=== PATIENT | female | born 1930 | race Caucasian/White ===

== ENCOUNTER 2016-04-08 23:14 | Emergency (ER) | payer BC, MEDICARE ==
[2016-04-08 23:25] VITALS: RESP 16
--- NOTE | 2016-04-08 23:28 | ED ---
General Adult HPI - General Chief complaint: Altered Mental Status Stated complaint: Altered Mental Status Time Seen by Provider: 04/08/16 23:14 Source: patient, EMS, RN notes reviewed Mode of arrival: EMS Limitations: physical limitation - History of Present Illness Initial comments: This is a 85-year-old female who apparently was found outside her residence. Additionally she was there for to 2 and half hours. She had fallen on her knees she complains some left neck pain she was brought in by EMS for evaluation for possible hypothermia. She is found have a temperature of about 93 Fahrenheit. No evidence of any external trauma was noted except for some erythema to both knees. No other information is available the patient is alert to self and to place but not time - Related Data Home Medications Medication Instructions Recorded Confirmed Atenolol [Tenormin] 25 mg PO QAM 04/08/16 04/08/16 Calcium/Magnesium/Zinc 1 tab PO BID 04/08/16 04/08/16 [Zowpryg-Eskhbcbtn-Gvdt Tablet] Citalopram Hydrobromide [CeleXA] 10 mg PO HS 04/08/16 04/08/16 Pioglitazone [Actos] 15 mg PO DAILY 04/08/16 04/08/16 Ramipril [Altace] 10 mg PO QAM 04/08/16 04/08/16 Simvastatin [Zocor] 20 mg PO HS 04/08/16 04/08/16 metFORMIN HCL [Glucophage] 500 mg PO BID 04/08/16 04/08/16 Allergies Allergy/AdvReac Type Severity Reaction Status Date / Time Sulfa (Sulfonamide Allergy Unknown Verified 04/08/16 23:25 Antibiotics) Review of Systems ROS Statement: Those systems with pertinent positive or pertinent negative responses have been documented in the HPI. ROS Other: All systems not noted in ROS Statement are negative. Limitations: ROS unobtainable due to patients medical condition Past Medical History Past Medical History: Unable to Obtain History of Any Multi-Drug Resistant Organisms: Unobtainable Past Surgical History: Unable to Obtain Past Psychological History: Unable to Obtain Smoking Status: Unknown if ever smoked Past Alcohol Use History: Unable to Obtain Past Drug Use History: Unable to Obtain General Exam - General Exam Comments Initial Comments: This is a well-developed well-nourished awake alert but somewhat confused female she did have a cervical collar in place Limitations: physical limitation General appearance: alert, in no apparent distress Head exam: Present: atraumatic, normocephalic, normal inspection Eye exam: Present: normal appearance, PERRL, EOMI. Absent: scleral icterus, conjunctival injection, periorbital swelling ENT exam: Present: normal exam, mucous membranes moist Neck exam: Present: normal inspection, tenderness (Left neck tenderness palpation no spinous process tenderness no step-off or crepitation is no stridor JVD or bruits). Absent: meningismus, lymphadenopathy Respiratory exam: Present: normal lung sounds bilaterally. Absent: respiratory distress, wheezes, rales, rhonchi, stridor Cardiovascular Exam: Present: regular rate, normal rhythm, normal heart sounds. Absent: systolic murmur, diastolic murmur, rubs, gallop, clicks GI/Abdominal exam: Present: soft, normal bowel sounds. Absent: distended, tenderness, guarding, rebound, rigid Extremities exam: Present: full ROM, normal capillary refill, other (Mild erythema seen in both knees with no step-off no crepitation no lacerations.). Absent: tenderness, pedal edema, joint swelling, calf tenderness Back exam: Present: normal inspection Neurological exam: Present: alert, oriented X3, CN II-XII intact Psychiatric exam: Present: normal affect, normal mood Skin exam: Present: warm, dry, intact, normal color. Absent: rash Course Vital Signs 04/08/16 04/09/16 04/09/16 23:21 00:18 00:49 Temperature 97.3 F L 98.0 F 98.2 F Pulse Rate 95 92 92 Respiratory 16 16 16 Rate Blood Pressure 145/67 136/62 128/66 O2 Sat by Pulse 97 96 96 Oximetry EKG Findings - EKG Results: EKG: interpreted by [email or web address], sinus rhythm (Sinus rhythm of 95 prolonged QT interval CO interval was 196 QRS duration 72 QT/QTC of 390/[address]-T wave changes.) Medical Decision Making - Medical Decision Making Patient's awake alert oriented normal temperature she will be discharged - Lab Data Result diagrams: 04/08/16 23:27 04/08/16 23:27 Lab Results 04/08/16 04/08/16 04/08/16 Range/Units 23:27 23:27 23:27 WBC 15.2 H (3.8-10.6) k/uL RBC 4.12 (3.80-5.40) m/uL Hgb 12.5 (11.4-16.0) gm/dL Hct 39.6 (34.0-46.0) % MCV 96.2 (80.0-100.0) fL MCH 30.4 (25.0-35.0) pg MCHC 31.6 (31.0-37.0) g/dL RDW 12.9 (11.5-15.5) % Plt Count 213 (150-450) k/uL Neutrophils % 86 % Lymphocytes % 10 % Monocytes % 3 % Eosinophils % 0 % Basophils % 0 % Neutrophils # 13.1 H (1.3-7.7) k/uL Lymphocytes # 1.5 (1.0-4.8) k/uL Monocytes # 0.5 (0-1.0) k/uL Eosinophils # 0.1 (0-0.7) k/uL Basophils # 0.1 (0-0.2) k/uL Sodium 140 (137-145) mmol/L Potassium 4.7 (3.5-5.1) mmol/L Chloride 100 (98-107) mmol/L Carbon Dioxide 24 (22-30) mmol/L Anion Gap 16 mmol/L BUN 24 H (7-17) mg/dL Creatinine 0.70 (0.52-1.04) mg/dL Est GFR (MDRD) Af Amer >60 (>60 ml/min/1.73 sqM) Est GFR (MDRD) Non-Af >60 (>60 ml/min/1.73 sqM) Glucose 159 H (74-99) mg/dL POC Glucose (mg/dL) (75-99) mg/dL POC Glu Hourly Caregiver ID Calcium 9.6 (8.4-10.2) mg/dL Magnesium 2.2 (1.6-2.3) mg/dL Total Bilirubin 0.4 (0.2-1.3) mg/dL AST 23 (14-36) U/L ALT 26 (9-52) U/L Alkaline Phosphatase 109 (38-126) U/L Total Creatine Kinase 87 (30-135) U/L CK-MB (CK-2) 1.0 (0.0-2.4) ng/mL CK-MB (CK-2) Rel Index 1.1 Troponin I 0.020 (0.000-0.034) ng/mL Total Protein 7.4 (6.3-8.2) g/dL Albumin 4.3 (3.5-5.0) g/dL 04/08/16 Range/Units 23:34 WBC (3.8-10.6) k/uL RBC (3.80-5.40) m/uL Hgb (11.4-16.0) gm/dL Hct (34.0-46.0) % MCV (80.0-100.0) fL MCH (25.0-35.0) pg MCHC (31.0-37.0) g/dL RDW (11.5-15.5) % Plt Count (150-450) k/uL Neutrophils % % Lymphocytes % % Monocytes % % Eosinophils % % Basophils % % Neutrophils # (1.3-7.7) k/uL Lymphocytes # (1.0-4.8) k/uL Monocytes # (0-1.0) k/uL Eosinophils # (0-0.7) k/uL Basophils # (0-0.2) k/uL Sodium (137-145) mmol/L Potassium (3.5-5.1) mmol/L Chloride (98-107) mmol/L Carbon Dioxide (22-30) mmol/L Anion Gap mmol/L BUN (7-17) mg/dL Creatinine (0.52-1.04) mg/dL Est GFR (MDRD) Af Amer (>60 ml/min/1.73 sqM) Est GFR (MDRD) Non-Af (>60 ml/min/1.73 sqM) Glucose (74-99) mg/dL POC Glucose (mg/dL) 151 H (75-99) mg/dL POC Glu Hourly Caregiver ID Anne Cervantes Calcium (8.4-10.2) mg/dL Magnesium (1.6-2.3) mg/dL Total Bilirubin (0.2-1.3) mg/dL AST (14-36) U/L ALT (9-52) U/L Alkaline Phosphatase (38-126) U/L Total Creatine Kinase (30-135) U/L CK-MB (CK-2) (0.0-2.4) ng/mL CK-MB (CK-2) Rel Index Troponin I (0.000-0.034) ng/mL Total Protein (6.3-8.2) g/dL Albumin (3.5-5.0) g/dL - Radiology Data Radiology results: report reviewed (I did review the imaging and reports no acute findings), image reviewed Disposition Clinical Impression: Dehydration, Cervical strain, Knee contusion, Feared condition not demonstrated Disposition: HOME SELF-CARE Condition: Good Instructions: Dehydration (ED), Neck Pain (ED)
[2016-04-08 23:35] LABS: Glucose,Whole Blood 151 mg/dL (75-99)
[2016-04-08 23:39] LABS: Basophils # (A) 0.1 k/uL (0-0.2); Basophils % (A) 0 %; CH 31.4; CHCM 32.9; Eosinophils # (A) 0.1 k/uL (0-0.7); Eosinophils % (A) 0 %; HCT 39.6 % (34.0-46.0); HDW 2.33; HGB 12.5 gm/dL (11.4-16.0); Luc # (Auto) 0.06; Luc % (Auto) 0; Lymphocytes # (A) 1.5 k/uL (1.0-4.8); Lymphocytes % (A) 10 %; MCH 30.4 pg (25.0-35.0); MCHC 31.6 g/dL (31.0-37.0); MCV 96.2 fL (80.0-100.0); Mean Platelet Volume 7.9; Monocytes # (A) 0.5 k/uL (0-1.0); Monocytes % (A) 3 %; Neutrophils # (A) 13.1 k/uL (1.3-7.7); Neutrophils % (A) 86 %; RBC 4.12 m/uL (3.80-5.40); RDW 12.9 % (11.5-15.5); WBC 15.2 k/uL (3.8-10.6); WBC (Perox) 15.54
[2016-04-08 23:48] LABS: ALT 26 U/L (9-52); AST 23 U/L (14-36); Alkaline Phosphatase 109 U/L (38-126); Anion Gap 16 mmol/L; Blood Urea Nitrogen 24 mg/dL (7-17); Calcium 9.6 mg/dL (8.4-10.2); Carbon Dioxide 24 mmol/L (22-30); Chloride 100 mmol/L (98-107); Glucose 159 mg/dL (74-99); Magnesium 2.2 mg/dL (1.6-2.3); Non-African American GFR(MDRD) >60 (>60 ml/min/1.73 sqM); Potassium 4.7 mmol/L (3.5-5.1); Sodium 140 mmol/L (137-145); Total Bilirubin 0.4 mg/dL (0.2-1.3); Total Protein 7.4 g/dL (6.3-8.2)
[2016-04-09 00:13] LABS: Troponin I 0.02 ng/mL (0.000-0.034)
[2016-04-09 00:30] VITALS: PULSE 92
--- NOTE | 2016-04-09 00:32 | XR ---
EXAMINATION TYPE: XR chest 2V DATE OF EXAM: 04/09/2016 12:23 AM COMPARISON: None. HISTORY: Phone outside and cold positive LOC. TECHNIQUE: Frontal and lateral views of the chest are obtained. FINDINGS: Mild chronic interstitial lung changes are suggested bilaterally. There is no focal pneumonia, pleural effusion, or pneumothorax seen. The cardiac silhouette size is within normal limits. Atherosclerotic calcification is noted in the aortic arch. The osseous struct ures are intact. Mild increased density in the left lung base area is most likely an artifact. The la teral view does not show significant pleural effusion. IMPRESSION: 1. No acute cardiopulmonary process. 2. Chronic lung changes are suggested.
[2016-04-09 00:50] VITALS: BP 128/66; TEMP 98.2
--- NOTE | 2016-04-09 01:04 | CT ---
EXAMINATION TYPE: CT brain cspine wo con DATE OF EXAM: 04/09/2016 12:22 AM COMPARISON: NONE HISTORY: pt. found outside, LOC, AMS CT DLP: 1242.30 mGycm Automated exposure control for dose reduction was used. TECHNIQUE: CT scan of the head and cervical spine are performed without contrast. FINDINGS: There is no acute intracranial hemorrhage, mass effect, or midline shift identified. Prominent cortical sulci are noted with age-related atrophic changes of brain. Ventricles are also pr ominent in size with central cerebral atrophic changes. The left lateral ventricle is somewhat asymme trically increasingly dilated with atrophic changes. There is dense calcification in the right suprasellar area and is probably related to calcified ectat ic supraclinoid internal carotid artery. Dense activity atherosclerotic calcification is also noted i n the cavernous portions of carotid arteries. Chronic white matter ischemic changes are suggested kenny aterally. The globes are intact. Mucus retention cysts are noted in the left maxillary sinus with chronic sinus itis changes. There is volume loss of right maxillary sinus probably related to chronic inflammatory process or postsurgical changes with chronic sinusitis changes. Mild chronic ethmoid and sphenoid sin usitis changes are suggested. Cervical spine is visualized in its entirety from C1 through upper thoracic levels and demonstrates s atisfactory alignment without evidence of acute fracture or dislocation. Prevertebral soft tissue ap pears within normal limits. The C1-C2 articulation is unremarkable. Slight irregularity is noted in the inferior endplate of C4 vertebra posteriorly in the sagittal imag e 32 and is probably related to old fracture changes or trauma changes or degenerative changes. 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 Degenerative disc disease changes are also noted at the level of C5-C6 and C6-C7 with a disc osteophyte complexes. Mild disc os teophyte complexes are also suggested at the level of C2-C3 and C3-C4.. C7 vertebra showed hemangioma changes of benign nature on the right side in the body in the axial ketty ge 73. Biapical pleural thickening and scarring is suggested. Carotid arterial calcification is noted. IMPRESSION: 1. No acute process is noted in the brain. 2. Atrophic changes and periventricular white matter ischemic changes of chronic nature. 3. Chronic sinusitis. 4. No definite acute fracture in the cervical spine. 5. 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
== END 2016-04-09 01:22 | disposition home or self-care (01) ==
LOC: EC 23:14
DX: E86.0 Dehydration (principal); S16.1XXA Strain of muscle, fascia and tendon at neck level, initial encounter; R41.82 Altered mental status, unspecified; Z71.1 Person with feared health complaint in whom no diagnosis is made; Z79.899 Other long term (current) drug therapy; Z79.84 Long term (current) use of oral hypoglycemic drugs; Z88.2 Allergy status to sulfonamides; W19.XXXA Unspecified fall, initial encounter; Y92.008 Other place in unspecified non-institutional (private) residence as the place of occurrence of the external cause
CPT/HCPCS: 36415; 70450; 71020; 72125; 80053; 82550; 82553; 83735; 84484; 85025; 93005; 99285

== ENCOUNTER 2016-09-27 17:30 | Emergency (ER) | payer MEDICARE ==
[2016-09-27] MEDS ORDERED: SODIUM CHLORIDE 0.9% 1,000 ML IV STA (17:31)
--- NOTE | 2016-09-27 17:37 | ED ---
General Adult HPI - General Chief complaint: Syncope Stated complaint: Syncope Time Seen by Provider: 09/27/16 17:31 Source: patient, EMS, RN notes reviewed, old records reviewed Mode of arrival: EMS Limitations: no limitations - History of Present Illness Initial comments: This is an 85-year-old female ER status post syncopal event. Patient is poor historian secondary to underlying medical conditions. Patient denies any complaints. No headache chest pain shortness of breath or abdominal pain. Medical history consists of diabetes. No recent change in medications per report. Record obtained from EMS and patient's chart - Related Data Home Medications Medication Instructions Recorded Confirmed Atenolol [Tenormin] 25 mg PO QAM 04/08/16 09/27/16 Calcium/Magnesium/Zinc 1 tab PO BID 04/08/16 09/27/16 [Fstdtmh-Sbtomvrbd-Kntp Tablet] Citalopram Hydrobromide [CeleXA] 10 mg PO HS 04/08/16 09/27/16 Pioglitazone [Actos] 15 mg PO DAILY 04/08/16 09/27/16 Ramipril [Altace] 10 mg PO QAM 04/08/16 09/27/16 Simvastatin [Zocor] 20 mg PO HS 04/08/16 09/27/16 metFORMIN HCL [Glucophage] 500 mg PO AC-BRKFST 04/08/16 09/27/16 Donepezil [Aricept] 5 mg PO HS 09/27/16 09/27/16 guaiFENesin-DM 100-10MG/5ML 10 ml PO QID PRN 09/27/16 09/27/16 [Robitussin DM] metFORMIN HCL [Glucophage] 1,000 mg PO HS 09/27/16 09/27/16 Allergies Allergy/AdvReac Type Severity Reaction Status Date / Time Sulfa (Sulfonamide Allergy Rash/Hives Verified 09/27/16 17:49 Antibiotics) Review of Systems ROS Statement: Those systems with pertinent positive or pertinent negative responses have been documented in the HPI. ROS Other: All systems not noted in ROS Statement are negative. Past Medical History Past Medical History: Diabetes Mellitus History of Any Multi-Drug Resistant Organisms: None Reported Past Surgical History: Hysterectomy Past Psychological History: No Psychological Hx Reported Smoking Status: Never smoker Past Alcohol Use History: Occasional Past Drug Use History: Unable to Obtain General Exam Limitations: no limitations General appearance: alert, in no apparent distress Head exam: Present: atraumatic, normocephalic, normal inspection Eye exam: Present: normal appearance, PERRL, EOMI. Absent: scleral icterus, conjunctival injection, periorbital swelling ENT exam: Present: normal exam, mucous membranes moist Neck exam: Present: normal inspection. Absent: tenderness, meningismus, lymphadenopathy Respiratory exam: Present: normal lung sounds bilaterally. Absent: respiratory distress, wheezes, rales, rhonchi, stridor Cardiovascular Exam: Present: regular rate, normal rhythm, normal heart sounds. Absent: systolic murmur, diastolic murmur, rubs, gallop, clicks GI/Abdominal exam: Present: soft, normal bowel sounds. Absent: distended, tenderness, guarding, rebound, rigid Extremities exam: Present: normal inspection, full ROM, normal capillary refill. Absent: tenderness, pedal edema, joint swelling, calf tenderness Back exam: Present: normal inspection Neurological exam: Present: alert, oriented X3, CN II-XII intact Psychiatric exam: Present: normal affect, normal mood Skin exam: Present: warm, dry, intact, normal color. Absent: rash Course Vital Signs 09/27/16 17:31 Temperature 98.9 F Pulse Rate 79 Respiratory 16 Rate Blood Pressure 124/77 O2 Sat by Pulse 96 Oximetry - Reevaluation(s) Reevaluation #1: 09/27/16 18:29 Patient continued has 0 complaints EKG Findings - EKG Comments: EKG Findings:: EKG shows normal sinus rhythm rate of 70, CA 180, QRS 80, QTC 453 Medical Decision Making - Medical Decision Making A 50 RVR status post: Syncopal episode. Patient has no complaints. No chest pain no headache no shortness of breath no abdominal pain, lab work is normal, urine is negative. Patient feels well, awake and alert, patient be discharged home - Lab Data Result diagrams: 09/27/16 17:36 09/27/16 17:36 Lab Results 09/27/16 09/27/16 09/27/16 Range/Units 17:36 17:36 17:36 WBC 6.2 (3.8-10.6) k/uL RBC 4.15 (3.80-5.40) m/uL Hgb 13.1 (11.4-16.0) gm/dL Hct 40.2 (34.0-46.0) % MCV 96.8 (80.0-100.0) fL MCH 31.4 (25.0-35.0) pg MCHC 32.5 (31.0-37.0) g/dL RDW 13.8 (11.5-15.5) % Plt Count 220 (150-450) k/uL Neutrophils % 54 % Lymphocytes % 33 % Monocytes % 7 % Eosinophils % 4 % Basophils % 1 % Neutrophils # 3.4 (1.3-7.7) k/uL Lymphocytes # 2.0 (1.0-4.8) k/uL Monocytes # 0.4 (0-1.0) k/uL Eosinophils # 0.2 (0-0.7) k/uL Basophils # 0.0 (0-0.2) k/uL PT (9.0-12.0) sec INR (<1.2) APTT (22.0-30.0) sec Sodium 141 (137-145) mmol/L Potassium 4.1 (3.5-5.1) mmol/L Chloride 104 (98-107) mmol/L Carbon Dioxide 28 (22-30) mmol/L Anion Gap 9 mmol/L BUN 13 (7-17) mg/dL Creatinine 0.78 (0.52-1.04) mg/dL Est GFR (MDRD) Af Amer >60 (>60 ml/min/1.73 sqM) Est GFR (MDRD) Non-Af >60 (>60 ml/min/1.73 sqM) Glucose 212 H (74-99) mg/dL Calcium 9.0 (8.4-10.2) mg/dL Phosphorus 3.7 (2.5-4.5) mg/dL Magnesium 1.9 (1.6-2.3) mg/dL Total Bilirubin 0.4 (0.2-1.3) mg/dL AST 19 (14-36) U/L ALT 26 (9-52) U/L Alkaline Phosphatase 103 (38-126) U/L Total Creatine Kinase 40 (30-135) U/L Total Protein 6.8 (6.3-8.2) g/dL Albumin 3.9 (3.5-5.0) g/dL Urine Color Urine Appearance (Clear) Urine pH (5.0-8.0) Ur Specific [place] (1.001-1.035) Urine Protein (Negative) Urine Glucose (UA) (Negative) Urine Ketones (Negative) Urine Blood (Negative) Urine Nitrite (Negative) Urine Bilirubin (Negative) Urine Urobilinogen (<2.0) mg/dL Ur Leukocyte Esterase (Negative) 09/27/16 09/27/16 Range/Units 17:36 17:55 WBC (3.8-10.6) k/uL RBC (3.80-5.40) m/uL Hgb (11.4-16.0) gm/dL Hct (34.0-46.0) % MCV (80.0-100.0) fL MCH (25.0-35.0) pg MCHC (31.0-37.0) g/dL RDW (11.5-15.5) % Plt Count (150-450) k/uL Neutrophils % % Lymphocytes % % Monocytes % % Eosinophils % % Basophils % % Neutrophils # (1.3-7.7) k/uL Lymphocytes # (1.0-4.8) k/uL Monocytes # (0-1.0) k/uL Eosinophils # (0-0.7) k/uL Basophils # (0-0.2) k/uL PT 11.3 (9.0-12.0) sec INR 1.1 (<1.2) APTT 22.5 (22.0-30.0) sec Sodium (137-145) mmol/L Potassium (3.5-5.1) mmol/L Chloride (98-107) mmol/L Carbon Dioxide (22-30) mmol/L Anion Gap mmol/L BUN (7-17) mg/dL Creatinine (0.52-1.04) mg/dL Est GFR (MDRD) Af Amer (>60 ml/min/1.73 sqM) Est GFR (MDRD) Non-Af (>60 ml/min/1.73 sqM) Glucose (74-99) mg/dL Calcium (8.4-10.2) mg/dL Phosphorus (2.5-4.5) mg/dL Magnesium (1.6-2.3) mg/dL Total Bilirubin (0.2-1.3) mg/dL AST (14-36) U/L ALT (9-52) U/L Alkaline Phosphatase (38-126) U/L Total Creatine Kinase (30-135) U/L Total Protein (6.3-8.2) g/dL Albumin (3.5-5.0) g/dL Urine Color Yellow Urine Appearance Clear (Clear) Urine pH 5.0 (5.0-8.0) Ur Specific [place] 1.020 (1.001-1.035) Urine Protein Trace H (Negative) Urine Glucose (UA) 4+ H (Negative) Urine Ketones Trace H (Negative) Urine Blood Negative (Negative) Urine Nitrite Negative (Negative) Urine Bilirubin Negative (Negative) Urine Urobilinogen <2.0 (<2.0) mg/dL Ur Leukocyte Esterase Negative (Negative) Disposition Clinical Impression: Vasovagal syncope Disposition: HOME SELF-CARE Condition: Good Instructions: Syncope (ED) Referrals: None,Stated [Primary Care Provider] - 1-2 days
[2016-09-27 17:58] LABS: Basophils % (A) 1 %; CHCM 32.3; Eosinophils # (A) 0.2 k/uL (0-0.7); Eosinophils % (A) 4 %; HCT 40.2 % (34.0-46.0); HDW 2.35; HGB 13.1 gm/dL (11.4-16.0); Luc # (Auto) 0.14; Luc % (Auto) 2; Lymphocytes % (A) 33 %; MCH 31.4 pg (25.0-35.0); MCHC 32.5 g/dL (31.0-37.0); MCV 96.8 fL (80.0-100.0); Monocytes # (A) 0.4 k/uL (0-1.0); Monocytes % (A) 7 %; Neutrophils # (A) 3.4 k/uL (1.3-7.7); Neutrophils % (A) 54 %; RBC 4.15 m/uL (3.80-5.40); RDW 13.8 % (11.5-15.5); WBC 6.2 k/uL (3.8-10.6); WBC (Perox) 6.05
[2016-09-27 18:02] LABS: Appearance,Urine Clear (Clear); Bilirubin,Urine Negative (Negative); Glucose,Urine (UA) 4+ (Negative); Ketones,Urine Trace (Negative); Leukocyte Esterase,Urine Negative (Negative); Nitrite,Urine Negative (Negative); Protein,Urine Trace (Negative); UA Billing (MACRO vs. MICRO) CHEM; Urobilinogen,Urine <2.0 mg/dL (<2.0)
[2016-09-27 18:09] LABS: INR 1.1 (<1.2); Partial Thromboplastin Time 22.5 sec (22.0-30.0); Prothrombin Time 11.3 sec (9.0-12.0)
[2016-09-27 18:12] LABS: ALT 26 U/L (9-52); AST 19 U/L (14-36); Alkaline Phosphatase 103 U/L (38-126); Anion Gap 9 mmol/L; Blood Urea Nitrogen 13 mg/dL (7-17); Carbon Dioxide 28 mmol/L (22-30); Chloride 104 mmol/L (98-107); Glucose 212 mg/dL (74-99); Magnesium 1.9 mg/dL (1.6-2.3); Non-African American GFR(MDRD) >60 (>60 ml/min/1.73 sqM); Phosphorous 3.7 mg/dL (2.5-4.5); Potassium 4.1 mmol/L (3.5-5.1); Sodium 141 mmol/L (137-145); Total Bilirubin 0.4 mg/dL (0.2-1.3); Total Protein 6.8 g/dL (6.3-8.2)
[2016-09-27 18:23] LABS: Creatine Kinase 40 U/L (30-135)
[2016-09-27 18:36] LABS: Creatine Kinase MB 0.5 ng/mL (0.0-2.4); Troponin I <0.012 ng/mL (0.000-0.034)
[2016-09-27 18:45] VITALS: BP 133/58; PULSE 71; RESP 17; TEMP 97.1
== END 2016-09-27 18:45 | disposition home or self-care (01) ==
LOC: EC 17:30
DX: R55 Syncope and collapse (principal); E11.9 Type 2 diabetes mellitus without complications; Z88.2 Allergy status to sulfonamides; Z79.84 Long term (current) use of oral hypoglycemic drugs; Z79.899 Other long term (current) drug therapy
CPT/HCPCS: 36415; 80053; 81003; 82550; 82553; 83735; 84100; 84484; 85025; 85610; 85730; 87086; 93005; 96360; 99285

== ENCOUNTER 2019-03-24 11:36 | Emergency (ER) | payer MEDICARE ==
[2019-03-24 11:44] VITALS: RESP 18
--- NOTE | 2019-03-24 12:09 | ED ---
Fall HPI - General Chief Complaint: Fall Stated Complaint: Fell Time Seen by Provider: 03/24/19 11:42 Source: patient, EMS Mode of arrival: EMS - History of Present Illness Initial Comments: Patient is an 88-year-old female, with mild dementia, presenting to the emergency department via EMS after falling at her house today. Patient does live in assisted living facility. Patient's daughter states she was helping patient go from sitting to standing and then to walk over to the bed when she tripped over her right foot and fell forward. Daughter states she did not hit her head and did not lose consciousness. Pt's only complaint is right ankle pain. Patient denies headache, neck pain, chest pain, shortness of breath, abdominal pain, hip pain. She denies feeling lightheaded, dizzy. She has no other complaints at this time. Patient's son and daughter is here with her now and states she is at her baseline. Upon arrival to the ER, vital signs are stable. - Related Data Home Medications Medication Instructions Recorded Confirmed Atenolol [Tenormin] 25 mg PO QAM 04/08/16 09/27/16 Calcium/Magnesium/Zinc 1 tab PO BID 04/08/16 09/27/16 [Ymtiten-Tyyswveyj-Bijg Tablet] Citalopram Hydrobromide [CeleXA] 10 mg PO HS 04/08/16 09/27/16 Pioglitazone [Actos] 15 mg PO DAILY 04/08/16 09/27/16 Ramipril [Altace] 10 mg PO QAM 04/08/16 09/27/16 Simvastatin [Zocor] 20 mg PO HS 04/08/16 09/27/16 metFORMIN HCL [Glucophage] 500 mg PO AC-BRKFST 04/08/16 09/27/16 Donepezil [Aricept] 5 mg PO HS 09/27/16 09/27/16 guaiFENesin-DM 100-10MG/5ML 10 ml PO QID PRN 09/27/16 09/27/16 [Robitussin DM] metFORMIN HCL [Glucophage] 1,000 mg PO HS 09/27/16 09/27/16 Previous Rx's Medication Instructions Recorded Cephalexin [Keflex] 500 mg PO BID 7 Days #14 cap 03/24/19 Allergies Allergy/AdvReac Type Severity Reaction Status Date / Time Sulfa (Sulfonamide Allergy Rash/Hives Verified 03/24/19 11:45 Antibiotics) Review of Systems ROS Statement: Those systems with pertinent positive or pertinent negative responses have been documented in the HPI. ROS Other: All systems not noted in ROS Statement are negative. Past Medical History Past Medical History: Dementia, Diabetes Mellitus History of Any Multi-Drug Resistant Organisms: None Reported Past Surgical History: Hysterectomy Past Psychological History: No Psychological Hx Reported Smoking Status: Never smoker Past Alcohol Use History: Occasional Past Drug Use History: Unable to Obtain General Exam - General Exam Comments Initial Comments: GENERAL: Well-appearing, well-nourished and in no acute distress. HEAD: Atraumatic, normocephalic. EYES: Pupils equal round and reactive to light, extraocular movements intact, sclera anicteric, conjunctiva are normal. ENT: TMs normal, nares patent, oropharynx clear without exudates. Moist mucous membr anes. NECK: Normal range of motion, supple without lymphadenopathy or JVD. LUNGS: Breath sounds clear to auscultation bilaterally and equal. No wheezes rales or rhonchi. HEART: Regular rate and rhythm without murmurs, rubs or gallops. ABDOMEN: Soft, nontender, normoactive bowel sounds. No guarding, no rebound. No masses appreciated. : Deferred EXTREMITIES: Mild pain with palpation of the right lateral ankle and lateral foot. There is mild edema and bruising present, normal range of motion. Neurovascular intact. NEUROLOGICAL: Cranial nerves II through XII grossly intact. Normal speech. At baseline, A&O x 2. PSYCH: Normal mood, normal affect. SKIN: Warm, Dry, normal turgor, no rashes or lesions noted. Limitations: altered mental status Course Vital Signs 03/24/19 11:38 Temperature 97.8 F Pulse Rate 73 Respiratory 18 Rate Blood Pressure 120/58 O2 Sat by Pulse 98 Oximetry Medical Decision Making - Medical Decision Making Patient is an 88-year-old female, with dementia, presenting today after falling. She did not hit her head, no LOC. Patient is not on thinners. Patient's only complaint was right ankle pain. On x-ray, patient does have a slight fracture of the right lateral malleolus as well as a nondisplaced fracture of the right, base of fifth metatarsal. Chest x-ray is normal. Lab work is unremarkable, troponin is normal. Urine does reveal a large amount of WBC and clumps. Patient will be treated for UTIs well. Patient's right foot was placed in a short leg splint. He was given 1 g of Rocephin before DC. She will continue with Keflex for her UTI and will also follow up with orthopedics regarding her fractures. Patient's daughter is in agreement with this plan of care. Return parameters were discussed with them and they verbalized understanding. Case discussed with Dr. Crowder. - Lab Data Result diagrams: 03/24/19 12:11 03/24/19 12:11 Lab Results 03/24/19 03/24/19 03/24/19 Range/Units 12:11 12:11 12:11 WBC 7.2 (3.8-10.6) k/uL RBC 3.98 (3.80-5.40) m/uL Hgb 12.2 (11.4-16.0) gm/dL Hct 38.6 (34.0-46.0) % MCV 97.0 (80.0-100.0) fL MCH 30.6 (25.0-35.0) pg MCHC 31.6 (31.0-37.0) g/dL RDW 13.2 (11.5-15.5) % Plt Count 242 (150-450) k/uL Neutrophils % 62 % Lymphocytes % 24 % Monocytes % 6 % Eosinophils % 4 % Basophils % 2 % Neutrophils # 4.4 (1.3-7.7) k/uL Lymphocytes # 1.7 (1.0-4.8) k/uL Monocytes # 0.5 (0-1.0) k/uL Eosinophils # 0.3 (0-0.7) k/uL Basophils # 0.1 (0-0.2) k/uL PT 9.7 (9.0-12.0) sec INR 0.9 (<1.2) APTT 19.3 L (22.0-30.0) sec Sodium 141 (137-145) mmol/L Potassium 4.8 (3.5-5.1) mmol/L Chloride 102 (98-107) mmol/L Carbon Dioxide 33 H (22-30) mmol/L Anion Gap 6 mmol/L BUN 15 (7-17) mg/dL Creatinine 0.81 (0.52-1.04) mg/dL Est GFR (CKD-EPI)AfAm 77 (>60 ml/min/1.73 sqM) Est GFR (CKD-EPI)NonAf 66 (>60 ml/min/1.73 sqM) Glucose 127 H (74-99) mg/dL Calcium 9.8 (8.4-10.2) mg/dL Total Bilirubin 0.7 (0.2-1.3) mg/dL AST 38 H (14-36) U/L ALT 23 (4-34) U/L Alkaline Phosphatase 85 (38-126) U/L Troponin I (0.000-0.034) ng/mL Total Protein 7.0 (6.3-8.2) g/dL Albumin 3.9 (3.5-5.0) g/dL Urine Color Urine Appearance (Clear) Urine pH (5.0-8.0) Ur Specific [place] (1.001-1.035) Urine Protein (Negative) Urine Glucose (UA) (Negative) Urine Ketones (Negative) Urine Blood (Negative) Urine Nitrite (Negative) Urine Bilirubin (Negative) Urine Urobilinogen (<2.0) mg/dL Ur Leukocyte Esterase (Negative) Urine RBC (0-5) /hpf Urine WBC (0-5) /hpf Urine WBC Clumps (None) /hpf Ur Squamous Epith Cells (0-4) /hpf Urine Bacteria (None) /hpf Hyaline Casts (0-2) /lpf Urine Mucus (None) /hpf 03/24/19 03/24/19 Range/Units 12:11 13:30 WBC (3.8-10.6) k/uL RBC (3.80-5.40) m/uL Hgb (11.4-16.0) gm/dL Hct (34.0-46.0) % MCV (80.0-100.0) fL MCH (25.0-35.0) pg MCHC (31.0-37.0) g/dL RDW (11.5-15.5) % Plt Count (150-450) k/uL Neutrophils % % Lymphocytes % % Monocytes % % Eosinophils % % Basophils % % Neutrophils # (1.3-7.7) k/uL Lymphocytes # (1.0-4.8) k/uL Monocytes # (0-1.0) k/uL Eosinophils # (0-0.7) k/uL Basophils # (0-0.2) k/uL PT (9.0-12.0) sec INR (<1.2) APTT (22.0-30.0) sec Sodium (137-145) mmol/L Potassium (3.5-5.1) mmol/L Chloride (98-107) mmol/L Carbon Dioxide (22-30) mmol/L Anion Gap mmol/L BUN (7-17) mg/dL Creatinine (0.52-1.04) mg/dL Est GFR (CKD-EPI)AfAm (>60 ml/min/1.73 sqM) Est GFR (CKD-EPI)NonAf (>60 ml/min/1.73 sqM) Glucose (74-99) mg/dL Calcium (8.4-10.2) mg/dL Total Bilirubin (0.2-1.3) mg/dL AST (14-36) U/L ALT (4-34) U/L Alkaline Phosphatase (38-126) U/L Troponin I <0.012 (0.000-0.034) ng/mL Total Protein (6.3-8.2) g/dL Albumin (3.5-5.0) g/dL Urine Color Yellow Urine Appearance Cloudy H (Clear) Urine pH 7.5 (5.0-8.0) Ur Specific [place] 1.013 (1.001-1.035) Urine Protein Negative (Negative) Urine Glucose (UA) Negative (Negative) Urine Ketones Negative (Negative) Urine Blood Negative (Negative) Urine Nitrite Positive H (Negative) Urine Bilirubin Negative (Negative) Urine Urobilinogen <2.0 (<2.0) mg/dL Ur Leukocyte Esterase Large H (Negative) Urine RBC 7 H (0-5) /hpf Urine WBC 156 H (0-5) /hpf Urine WBC Clumps Occasional H (None) /hpf Ur Squamous Epith Cells <1 (0-4) /hpf Urine Bacteria Few H (None) /hpf Hyaline Casts 2 (0-2) /lpf Urine Mucus Rare H (None) /hpf Disposition Clinical Impression: Fall, Fracture of right ankle, lateral malleolus, Fracture of base of fifth metatarsal bone of right foot, UTI (urinary tract infection) Disposition: HOME SELF-CARE Condition: Stable Instructions (If sedation given, give patient instructions): Foot Fracture in Adults (ED), Urinary Tract Infection in Older Adults (ED) Additional Instructions: Please return to the Emergency Department if symptoms worsen or any other concerns. Take antibiotic as prescribed. Follow-up with orthopedic doctor as discussed. Prescriptions: Cephalexin [Keflex] 500 mg PO BID 7 Days #14 cap Is patient prescribed a controlled substance at d/c from ED?: No Referrals: Darrius Cabrera MD [Primary Care Provider] - 1-2 days Roland Sierra PAC [PHYSICIAN STOCK SELECTOR] - 1-2 days
[2019-03-24 12:24] LABS: Basophils # (A) 0.1 k/uL (0-0.2); Basophils % (A) 2 %; Eosinophils # (A) 0.3 k/uL (0-0.7); Eosinophils % (A) 4 %; HCT 38.6 % (34.0-46.0); HGB 12.2 gm/dL (11.4-16.0); Lymphocytes # (A) 1.7 k/uL (1.0-4.8); Lymphocytes % (A) 24 %; MCH 30.6 pg (25.0-35.0); MCHC 31.6 g/dL (31.0-37.0); Mean Platelet Volume 8.4; Monocytes # (A) 0.5 k/uL (0-1.0); Monocytes % (A) 6 %; Neutrophils # (A) 4.4 k/uL (1.3-7.7); Neutrophils % (A) 62 %; Platelet Count 242 k/uL (150-450); RBC 3.98 m/uL (3.80-5.40); RDW 13.2 % (11.5-15.5); WBC 7.2 k/uL (3.8-10.6)
[2019-03-24 12:34] LABS: Albumin 3.9 g/dL (3.5-5.0); Calcium 9.8 mg/dL (8.4-10.2); Potassium 4.8 mmol/L (3.5-5.1); Total Bilirubin 0.7 mg/dL (0.2-1.3)
[2019-03-24 12:40] LABS: INR 0.9 (<1.2); Prothrombin Time 9.7 sec (9.0-12.0)
[2019-03-24 12:57] LABS: Partial Thromboplastin Time 19.3 sec (22.0-30.0)
--- NOTE | 2019-03-24 13:00 | XR ---
EXAMINATION TYPE: XR chest 2V DATE OF EXAM: 03/24/2019 COMPARISON: 04/08/2016 TECHNIQUE: PA and lateral views submitted. HISTORY: Altered mental status FINDINGS: Patient is rotated which limits the exam. There is subsegmental consolidation at the left lung base. Degenerative change of the spine. Mild cardiomegaly. Atherosclerotic change aorta. No definite overt failure. Correlate for COPD. IMPRESSION: 1. Left basilar atelectasis versus early infiltrate superimposed on a background of COPD.
--- NOTE | 2019-03-24 13:03 | XR ---
EXAMINATION TYPE: XR ankle complete RT DATE OF EXAM: 03/24/2019 COMPARISON: NONE HISTORY: Pain FINDINGS: Three views of the ankle were obtained. Soft tissue edema noted and there is a cortical defect along the lateral margin of the fibula. Soft tissue calcifications are seen medially. Slight asymmetry of t he lateral compartment of the ankle mortise. Calcaneal spur noted and there are vascular calcificatio ns. IMPRESSION: 1. Findings are suspicious for nondisplaced fracture lateral malleolus correlate with point tendernes s.
--- NOTE | 2019-03-24 13:04 | XR ---
EXAMINATION TYPE: XR foot complete RT DATE OF EXAM: 03/24/2019 COMPARISON: NONE HISTORY: Pain TECHNIQUE: Three views are submitted. FINDINGS: There is severe arthropathy and hypertrophic change of the first MTP. Distal phalanx difficult to ass ess due to positioning. There is a fracture at the base of the fifth metatarsal. IMPRESSION: 1. Acute fracture base fifth metatarsal. Mild displacement.
[2019-03-24 13:56] LABS: Appearance,Urine Cloudy (Clear); Bacteria,Urine Few /hpf; Bilirubin,Urine Negative (Negative); Blood,Urine Negative (Negative); Color,Urine Yellow; Glucose,Urine (UA) Negative (Negative); Hyaline Casts,Urine 2 /lpf (0-2); Ketones,Urine Negative (Negative); Leukocyte Esterase,Urine Large (Negative); Mucus,Urine Rare /hpf; Nitrite,Urine Positive (Negative); PH, Urine 7.5 (5.0-8.0); Protein,Urine Negative (Negative); RBC,Urine 7 /hpf (0-5); Specific Gravity,Urine 1.013 (1.001-1.035); Squamous Epithelial Cell,Urine <1 /hpf (0-4); Urobilinogen,Urine <2.0 mg/dL (<2.0); WBC,Urine 156 /hpf (0-5)
[2019-03-24] MEDS ORDERED: cefTRIAXone IN SWFI 1,000 MG/10 ML SYRINGE IVP STA (14:28)
[2019-03-24 15:14] VITALS: BP 118/52; PULSE 72; TEMP 98
== END 2019-03-24 14:55 | disposition home or self-care (01) ==
LOC: EC 11:36
DX: S82.61XA Displaced fracture of lateral malleolus of right fibula, initial encounter for closed fracture (principal); S92.354A Nondisplaced fracture of fifth metatarsal bone, right foot, initial encounter for closed fracture; N39.0 Urinary tract infection, site not specified; F03.90 Unspecified dementia, unspecified severity, without behavioral disturbance, psychotic disturbance, mood disturbance, and anxiety; E11.9 Type 2 diabetes mellitus without complications; Z88.2 Allergy status to sulfonamides; Z79.84 Long term (current) use of oral hypoglycemic drugs; Z79.899 Other long term (current) drug therapy; W01.0XXA Fall on same level from slipping, tripping and stumbling without subsequent striking against object, initial encounter; Y93.01 Activity, walking, marching and hiking; Y92.099 Unspecified place in other non-institutional residence as the place of occurrence of the external cause
CPT/HCPCS: 36415; 93005; 80053; 84484; 85025; 85610; 85730; 81001; 87086; 87077; 87186; 73610; 73630; 71046; 99284; 29515; 96374; J0696

== ENCOUNTER 2019-03-27 10:40 | Observation (INO) | payer MEDICARE ==
[2019-03-27] MEDS ORDERED: Acetaminophen-Codeine 300-30mg TAB PO STA (11:36)
--- NOTE | 2019-03-27 11:38 | ED ---
Fall HPI - General Chief Complaint: Fall Stated Complaint: Fall Time Seen by Provider: 03/27/19 11:08 Source: patient, EMS Mode of arrival: EMS - History of Present Illness Initial Comments: Patient is an 88-year-old female with history of dementia presenting to the emergency department with chief complaint of a fall. The daughter states the patient was diagnosed with a metatarsal fracture yesterday with an application of posterior splint. The daughter states the patient was taken back to her apartment which is in an assisted living community although they do not have 24- hour coverage. The daughter states her sister watching her mom when they fell asleep and woke up to find the patient walking around, confused without the splint on her foot. He also reported patient fell which his father noticed it. He does report head trauma. Patient is a poor historian. Denies any nausea or vomiting. They say the patient is acting at her baseline for the most part. - Related Data Home Medications Medication Instructions Recorded Confirmed Calcium/Magnesium/Zinc 1 tab PO BID@0800,182904/08/16 03/27/19 [Utfzzfa-Rnoxoqkyu-Wpqk Tablet] Citalopram Hydrobromide [CeleXA] 10 mg PO HS@182904/08/16 03/27/19 Pioglitazone [Actos] 15 mg PO DAILY@79904/08/16 03/27/19 Ramipril [Altace] 10 mg PO DAILY@79904/08/16 03/27/19 metFORMIN HCL [Glucophage] 500 mg PO DAILY@0804/08/16 03/27/19 Donepezil [Aricept] 5 mg PO HS@182909/27/16 03/27/19 guaiFENesin-DM 100-10MG/5ML 10 ml PO QID PRN 09/27/16 03/27/19 [Robitussin DM] metFORMIN HCL [Glucophage] 1,000 mg PO HS@182909/27/16 03/27/19 Atorvastatin [Lipitor] 40 mg PO HS@182903/27/19 03/27/19 Cephalexin [Keflex] 500 mg PO BID@0800,1800 03/27/19 03/27/19 Metoprolol Succinate [Toprol XL] 25 mg PO DAILY@0800 03/27/19 03/27/19 Allergies Allergy/AdvReac Type Severity Reaction Status Date / Time Sulfa (Sulfonamide Allergy Rash/Hives Verified 03/27/19 16:26 Antibiotics) Review of Systems ROS Statement: Those systems with pertinent positive or pertinent negative responses have been documented in the HPI. ROS Other: All systems not noted in ROS Statement are negative. Past Medical History Past Medical History: Dementia, Diabetes Mellitus History of Any Multi-Drug Resistant Organisms: None Reported Past Surgical History: Hysterectomy Past Psychological History: No Psychological Hx Reported Smoking Status: Never smoker Past Alcohol Use History: Occasional Past Drug Use History: Unable to Obtain General Exam Limitations: altered mental status, physical limitation General appearance: alert, in no apparent distress Head exam: Present: atraumatic, normocephalic, normal inspection. Absent: other (Negative Garcia sign, negative raccoon eyes, negative hemotympanum.) Eye exam: Present: normal appearance, PERRL, EOMI Pupils: Present: normal accommodation ENT exam: Present: normal exam, normal oropharynx, mucous membranes moist, TM's normal bilaterally, normal external ear exam Neck exam: Present: normal inspection, full ROM. Absent: tenderness Respiratory exam: Present: normal lung sounds bilaterally Cardiovascular Exam: Present: regular rate, normal rhythm, normal heart sounds GI/Abdominal exam: Present: soft. Absent: distended, tenderness Extremities exam: Present: full ROM, tenderness (Tenderness at the right foot.), normal capillary refill, other (+2 ulnar and radial pulses bilaterally.). Absent: normal inspection (Ecchymosis and swelling in the right foot.) Back exam: Present: normal inspection, full ROM. Absent: tenderness Neurological exam: Present: alert Psychiatric exam: Present: normal affect, normal mood Skin exam: Present: warm, dry, intact, normal color Course Vital Signs 03/27/19 03/27/19 03/27/19 10:46 13:16 15:02 Temperature 97.4 F L Pulse Rate 72 76 78 Respiratory 18 18 18 Rate Blood Pressure 126/59 130/63 112/71 O2 Sat by Pulse 98 96 97 Oximetry 03/27/19 16:11 Temperature 98.2 F Pulse Rate 77 Respiratory 18 Rate Blood Pressure 128/76 O2 Sat by Pulse 97 Oximetry Medical Decision Making - Medical Decision Making Patient is an 88-year-old female with history of dementia presenting to the emergency department with a chief complaint of fall. Her daughters are also present in the room and neck as historians. On exam patient does have continual swelling and ecchymosis of the right foot. Patient is alert and is able to answer questions. The daughters are concerned because the patient is not able to take care of herself, and she needs to heal due to her foot injury. Patient did take off the splint that was placed in a right foot. The daughters also state the patient has feeling increasingly confused which could potentially a cause from a urinary tract infection. Patient will be admitted for further medical management. Case discussed with physician. Admitting physician is - Lab Data Result diagrams: 03/28/19 07:58 03/28/19 07:58 Lab Results 03/27/19 03/27/19 03/27/19 Range/Units 13:16 13:16 13:16 WBC 8.5 (3.8-10.6) k/uL RBC 3.82 (3.80-5.40) m/uL Hgb 11.7 (11.4-16.0) gm/dL Hct 37.0 (34.0-46.0) % MCV 96.8 (80.0-100.0) fL MCH 30.8 (25.0-35.0) pg MCHC 31.8 (31.0-37.0) g/dL RDW 13.0 (11.5-15.5) % Plt Count 216 (150-450) k/uL Neutrophils % 59 % Lymphocytes % 27 % Monocytes % 6 % Eosinophils % 5 % Basophils % 1 % Neutrophils # 5.0 (1.3-7.7) k/uL Lymphocytes # 2.3 (1.0-4.8) k/uL Monocytes # 0.5 (0-1.0) k/uL Eosinophils # 0.4 (0-0.7) k/uL Basophils # 0.1 (0-0.2) k/uL Sodium 137 (137-145) mmol/L Potassium 6.3 H* (3.5-5.1) mmol/L Chloride 103 (98-107) mmol/L Carbon Dioxide 29 (22-30) mmol/L Anion Gap 5 mmol/L BUN 38 H (7-17) mg/dL Creatinine 1.96 H (0.52-1.04) mg/dL Est GFR (CKD-EPI)AfAm 26 (>60 ml/min/1.73 sqM) Est GFR (CKD-EPI)NonAf 23 (>60 ml/min/1.73 sqM) Glucose 99 (74-99) mg/dL Calcium 9.1 (8.4-10.2) mg/dL Magnesium (1.6-2.3) mg/dL Total Bilirubin 0.4 (0.2-1.3) mg/dL AST 39 H (14-36) U/L ALT 21 (4-34) U/L Alkaline Phosphatase 83 (38-126) U/L Creatine Kinase 127 (30-135) U/L Total Protein 6.1 L (6.3-8.2) g/dL Albumin 3.3 L (3.5-5.0) g/dL Urine Color Urine Appearance (Clear) Urine pH (5.0-8.0) Ur Specific [place] (1.001-1.035) Urine Protein (Negative) Urine Glucose (UA) (Negative) Urine Ketones (Negative) Urine Blood (Negative) Urine Nitrite (Negative) Urine Bilirubin (Negative) Urine Urobilinogen (<2.0) mg/dL Ur Leukocyte Esterase (Negative) Urine RBC (0-5) /hpf Urine WBC (0-5) /hpf Urine WBC Clumps (None) /hpf 03/27/19 03/27/19 Range/Units 14:33 14:33 WBC (3.8-10.6) k/uL RBC (3.80-5.40) m/uL Hgb (11.4-16.0) gm/dL Hct (34.0-46.0) % MCV (80.0-100.0) fL MCH (25.0-35.0) pg MCHC (31.0-37.0) g/dL RDW (11.5-15.5) % Plt Count (150-450) k/uL Neutrophils % % Lymphocytes % % Monocytes % % Eosinophils % % Basophils % % Neutrophils # (1.3-7.7) k/uL Lymphocytes # (1.0-4.8) k/uL Monocytes # (0-1.0) k/uL Eosinophils # (0-0.7) k/uL Basophils # (0-0.2) k/uL Sodium 138 (137-145) mmol/L Potassium 5.7 H (3.5-5.1) mmol/L Chloride 102 (98-107) mmol/L Carbon Dioxide 30 (22-30) mmol/L Anion Gap 6 mmol/L BUN 37 H (7-17) mg/dL Creatinine 2.03 H (0.52-1.04) mg/dL Est GFR (CKD-EPI)AfAm 25 (>60 ml/min/1.73 sqM) Est GFR (CKD-EPI)NonAf 22 (>60 ml/min/1.73 sqM) Glucose 92 (74-99) mg/dL Calcium 9.1 (8.4-10.2) mg/dL Magnesium 2.6 H (1.6-2.3) mg/dL Total Bilirubin 0.4 (0.2-1.3) mg/dL AST 35 (14-36) U/L ALT 21 (4-34) U/L Alkaline Phosphatase 85 (38-126) U/L Creatine Kinase (30-135) U/L Total Protein 6.3 (6.3-8.2) g/dL Albumin 3.3 L (3.5-5.0) g/dL Urine Color Light Yellow Urine Appearance Clear (Clear) Urine pH 6.0 (5.0-8.0) Ur Specific [place] 1.011 (1.001-1.035) Urine Protein 1+ H (Negative) Urine Glucose (UA) Negative (Negative) Urine Ketones Negative (Negative) Urine Blood Negative (Negative) Urine Nitrite Negative (Negative) Urine Bilirubin Negative (Negative) Urine Urobilinogen <2.0 (<2.0) mg/dL Ur Leukocyte Esterase Trace H (Negative) Urine RBC 1 (0-5) /hpf Urine WBC 19 H (0-5) /hpf Urine WBC Clumps Few H (None) /hpf - EKG Data EKG Comments: Normal sinus rhythm, no ST changes, T-wave inversions. Ventricular rate 71, KS interval 192, QRS duration 72, QTC 432. Disposition Clinical Impression: Fall, Metatarsal fracture, Confusion Disposition: ADMITTED IP TO THIS HOSP Condition: Stable Is patient prescribed a controlled substance at d/c from ED?: No Time of Disposition: 15:40
--- NOTE | 2019-03-27 12:25 | CT ---
EXAMINATION TYPE: CT brain robert wo con DATE OF EXAM: 03/27/2019 COMPARISON: April 09, 2016 HISTORY: Fall CT DLP: 1198.[address] of the brain was performed. The ventricles, basal cisterns and sulci overlying the cerebral convexities demonstrate mild enlargem ent. There is no evidence for intracranial hemorrhage or sulcal effacement. There is decreased attenuatio n about the periventricular white matter and deep white matter of both cerebral hemispheres, compatib le with chronic small vessel ischemia. No mass effects are seen. If symptoms persist consider MRI. Osseous calvarium is intact. Mucous retention cyst left maxillary sinus. IMPRESSION: 1. Age related atrophic and chronic small vessel ischemic change without acute intracranial process seen at this time. CT Cervical Spine: Unenhanced CT of the cervical spine was performed with bone and soft tissue window settings submitted . Coronal and sagittal reconstruction is obtained. There is normal alignment and prevertebral soft tissues. No evidence for acute cervical fracture . Scattered degenerative disc disease and spondylosis. Biapical scarring. IMPRESSION: 1. No evidence for acute fracture or subluxation of the cervical spine.
--- NOTE | 2019-03-27 12:48 | XR ---
EXAMINATION TYPE: XR chest 2V DATE OF EXAM: 03/27/2019 COMPARISON: Chest x-ray 3 days ago. HISTORY: Weakness, recent fall injury. TECHNIQUE: Frontal and lateral views of the chest are obtained. FINDINGS: Slightly elevated left hemidiaphragm. There is no focal air space opacity, pleural effusion , or pneumothorax seen. The cardiac silhouette size is stable and enlarged with atherosclerotic aort a. The osseous structures remain demineralized. Underlying scoliosis. Spurring and disc space narro wing or thoracolumbar junction redemonstrated. IMPRESSION: Cardiomegaly without acute pulmonary process.
--- NOTE | 2019-03-27 12:50 | XR ---
EXAMINATION TYPE: XR pelvis AP view DATE OF EXAM: 03/27/2019 CLINICAL HISTORY: Pelvic pain after recent fall injury. TECHNIQUE: A single AP view of the pelvis is obtained. COMPARISON: None. FINDINGS: There is no acute fracture/dislocation evident in the pelvis. Ztvq-lu-oxgqhode axial joint space loss in both hips with mild acetabular spurring. Sacroiliac joints and pubic symphysis are daniel ntained. Pelvic phleboliths bilaterally. Vascular calcification bilateral groin region. IMPRESSION: There is no acute fracture or dislocation in the pelvis.
--- NOTE | 2019-03-27 12:53 | XR ---
Right foot HISTORY: Trauma and pain 3 views of the right foot, comparison to previous exam dated 03/24/2019 There is a transverse minimally displaced proximal right fifth metatarsal fracture. Bone mineralizati on is reduced. There is soft tissue swelling. No dislocation. Questionable step-off noted along the m edial aspect of the navicular on the frontal view may be projectional. Correlate for point tenderness . Hallux valgus deformity with osteoarthritic changes present. Vascular calcifications noted incident ally. IMPRESSION: Known fracture proximal fifth metatarsal. Correlate for point tenderness medial navicular . Low bone mineralization.
[2019-03-27 13:29] LABS: Basophils # (A) 0.1 k/uL (0-0.2); Basophils % (A) 1 %; Eosinophils # (A) 0.4 k/uL (0-0.7); Eosinophils % (A) 5 %; HGB 11.7 gm/dL (11.4-16.0); Lymphocytes # (A) 2.3 k/uL (1.0-4.8); Lymphocytes % (A) 27 %; MCH 30.8 pg (25.0-35.0); MCHC 31.8 g/dL (31.0-37.0); MCV 96.8 fL (80.0-100.0); Mean Platelet Volume 8.3; Monocytes # (A) 0.5 k/uL (0-1.0); Monocytes % (A) 6 %; Neutrophils % (A) 59 %; Platelet Count 216 k/uL (150-450); RBC 3.82 m/uL (3.80-5.40); WBC 8.5 k/uL (3.8-10.6)
[2019-03-27 13:41] LABS: Albumin 3.3 g/dL (3.5-5.0); Calcium 9.1 mg/dL (8.4-10.2); Total Bilirubin 0.4 mg/dL (0.2-1.3); Total Protein 6.1 g/dL (6.3-8.2)
[2019-03-27 14:03] LABS: Potassium 6.3 mmol/L (3.5-5.1)
[2019-03-27 14:51] LABS: Appearance,Urine Clear (Clear); Bilirubin,Urine Negative (Negative); Blood,Urine Negative (Negative); Color,Urine Light Yellow; Glucose,Urine (UA) Negative (Negative); Ketones,Urine Negative (Negative); Leukocyte Esterase,Urine Trace (Negative); Nitrite,Urine Negative (Negative); Protein,Urine 1+ (Negative); RBC,Urine 1 /hpf (0-5); Specific Gravity,Urine 1.011 (1.001-1.035); Urobilinogen,Urine <2.0 mg/dL (<2.0); WBC,Urine 19 /hpf (0-5)
[2019-03-27 14:58] LABS: Albumin 3.3 g/dL (3.5-5.0); Calcium 9.1 mg/dL (8.4-10.2); Magnesium 2.6 mg/dL (1.6-2.3); Potassium 5.7 mmol/L (3.5-5.1); Total Bilirubin 0.4 mg/dL (0.2-1.3); Total Protein 6.3 g/dL (6.3-8.2)
[2019-03-27] MEDS ORDERED: SODIUM CHLORIDE 0.9% 1,000 ML IV ONE (15:18)
[2019-03-27] MEDS ORDERED: SODIUM CHLORIDE 0.9% 1,000 ML IV SCH (15:30)
[2019-03-27] MEDS ORDERED: HYDROmorphone 0.5 MG/0.5 ML SYRINGE IVP PRN (15:37)
[2019-03-27] MEDS ORDERED: IBUPROFEN 400 MG TAB PO PRN (15:37)
[2019-03-27] MEDS ORDERED: ACETAMINOPHEN TAB 325 MG TAB PO PRN (15:37)
[2019-03-27] MEDS ORDERED: ALPRAZolam 0.25 MG TAB PO PRN (15:37)
[2019-03-27] MEDS ORDERED: oxyCODONE-APAP 5-325MG 1 EACH TAB PO PRN (15:37)
[2019-03-27] MEDS ORDERED: NALOXONE 0.4 MG/ML 1 ML VIAL IV PRN (15:37)
[2019-03-27] MEDS ORDERED: guaiFENesin-DM 100-10MG/5ML 10 ML CUP PO PRN (17:44)
--- NOTE | 2019-03-27 17:46 | P.HPIM ---
History of Present Illness H&P Date: 03/27/19 The patient is an 88-year-old female with a PMH of Alzheimer's dementia, hypertension, hyperlipidemia, and type 2 diabetes mellitus who presented to the ED after a fall. The patient is a resident of an assisted living facility, where she had a fall 3 days prior after which she had presented to the emergency room at [facility] where she was found to have a right metatarsal fracture and had a brace put on. The patient was subsequently discharged back home. As per the daughters at the bedside, last night one of them had been staying with the patient and had gone to the bathroom when she heard a sudden thud, and found the patient had fallen to the ground, and had taken off her brace. Subsequent brought the patient into the emergency room earlier today. They reported noticing no injuries to the patient, and the patient herself denied any pain. At time of interview, the patient denied any active complaints. She denied chest pain, shortness of breath, nausea, vomiting, fever, chills, headache, visual disturbances, or abdominal pain. The patient underwent an extensive evaluation in the emergency room with a head/cervical spine CT which was unremarkable. Chest and pelvis x-rays were unremarkable. The foot x-ray redemonstrated fracture of the right metatarsal. EKG revealed normal sinus rhythm at [address]/T-wave changes noted. Laboratory evaluation revealed a WBC count of 8.5, hemoglobin 11.7, platelets 216, sodium 137, potassium 6.3, BUN 38, and creatinine 1.96. The patient was thereby admitted to the medicine service for acute renal failure, hyperkalemia, and placement needs. Review of Systems Pertinent positives and negatives as discussed in HPI, a complete review of systems was performed and all other systems are negative. Past Medical History Past Medical History: Dementia, Diabetes Mellitus History of Any Multi-Drug Resistant Organisms: ESBL Date of last positivie culture/infection: 03/24/19 ESBL Klebsiella MDRO Source:: Urine Past Surgical History: Hysterectomy Past Anesthesia/Blood Transfusion Reactions: No Reported Reaction Past Psychological History: No Psychological Hx Reported Smoking Status: Never smoker Past Alcohol Use History: Occasional Past Drug Use History: Unable to Obtain Medications and Allergies Home Medications Medication Instructions Recorded Confirmed Type Calcium/Magnesium/Zinc 1 tab PO BID@0800,1830 04/08/16 03/27/19 History [Oglhrlz-Tqrwynzpa-Jgkz Tablet] Citalopram Hydrobromide [CeleXA] 10 mg PO HS@1830 04/08/16 03/27/19 History Pioglitazone [Actos] 15 mg PO DAILY@0800 04/08/16 03/27/19 History Ramipril [Altace] 10 mg PO DAILY@0800 04/08/16 03/27/19 History metFORMIN HCL [Glucophage] 500 mg PO DAILY@0800 04/08/16 03/27/19 History Donepezil [Aricept] 5 mg PO HS@182909/27/16 03/27/19 History guaiFENesin-DM 100-10MG/5ML 10 ml PO QID PRN 09/27/16 03/27/19 History [Robitussin DM] metFORMIN HCL [Glucophage] 1,000 mg PO HS@182909/27/16 03/27/19 History Atorvastatin [Lipitor] 40 mg PO HS@18303/27/19 03/27/19 History Cephalexin [Keflex] 500 mg PO BID@0800,1800 03/27/19 03/27/19 History Metoprolol Succinate [Toprol XL] 25 mg PO DAILY@0800 03/27/19 03/27/19 History Allergies Allergy/AdvReac Type Severity Reaction Status Date / Time Sulfa (Sulfonamide Allergy Rash/Hives Verified 03/27/19 16:26 Antibiotics) Physical Exam Vitals: Vital Signs Temp Pulse Pulse Resp BP BP Pulse Ox 03/27/19 16:41 97.6 F 67 18 111/69 97 03/27/19 16:11 98.2 F 77 18 128/76 97 03/27/19 15:02 78 18 112/71 97 03/27/19 13:16 76 18 130/63 96 03/27/19 10:46 97.4 F L 72 18 126/59 98 Intake and Output 03/27/19 03/27/19 03/27/19 06:59 14:59 22:59 Other: Weight 54.431 kg 53.431 kg General: non toxic, no distress, appears at stated age, normal weight Derm: no unusual rashes/lesions, R foot echymoses, warm, dry Head: atraumatic, normocephalic, symmetric Eyes: EOMI, no lid lag, anicteric sclera, pupils equal round reactive to light ENT: Nose and ears atraumatic, no thrush, no pharyngeal erythema Neck: No thyromegaly, no cervical lymphadenopathy, trachea midline, supple Mouth: no lip lesion, mucus membranes moist Cardiovascular: S1S2 reg, no murmur, positive posterior tibial pulse bilateral, no edema, capillary refill less than 2 seconds Lungs: CTA bilateral, no rhonchi, no rales , no accessory muscle use Abdominal: soft, nontender to palpation, no guarding, no appreciable organomegaly, normal bowel sounds Ext: no gross muscle atrophy, muscle strength 5 out of 5 in all 4 extremities grossly, no contractures, Neuro: CN II-XI grossly intact, light touch intact all 4 extremities, finger to nose within normal limits, Psych: Awake, alert, oriented only to self Results CBC & Chem 7: 03/27/19 13:16 03/27/19 14:33 Labs: Abnormal Lab Results - Last 24 Hours (Table) 03/27/19 03/27/19 03/27/19 Range/Units 13:16 14:33 14:33 Potassium 6.3 H* 5.7 H (3.5-5.1) mmol/L BUN 38 H 37 H (7-17) mg/dL Creatinine 1.96 H 2.03 H (0.52-1.04) mg/dL Magnesium 2.6 H (1.6-2.3) mg/dL AST 39 H (14-36) U/L Total Protein 6.1 L (6.3-8.2) g/dL Albumin 3.3 L 3.3 L (3.5-5.0) g/dL Urine Protein 1+ H (Negative) Ur Leukocyte Esterase Trace H (Negative) Urine WBC 19 H (0-5) /hpf Urine WBC Clumps Few H (None) /hpf Thrombosis Risk Factor Assmnt - Choose All That Apply Each Factor Represents 1 point: Medical pt on bed rest Each Risk Factor Represents 2 Points: Patient confined to bed Each Risk Factor Represents 3 Points: Age 75 years or older Other congenital or acquired thrombophilia - If yes, enter type in comment: No Thrombosis Risk Factor Assessment Total Risk Factor Score: 6 Thrombosis Risk Factor Assessment Level: High Risk Assessment and Plan Plan: GABRIEL, likely prerenal due to decreased oral intake -Continue with IV fluids and monitor BMP -Check CPK levels Fall, with traumatic right metatarsal fracture -Orthopedic surgery consult -Fall precautions Hyperkalemia -Likely due to dehydration -Monitor BMP for now -IV fluids -Hold ACEI Abnormal UA -Patient currently on Keflex from outpatient -C/w Keflex for now Chronic conditions: Hypertension, hyperkalemia, type 2 diabetes mellitus, 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
[2019-03-27] MEDS: SODIUM CHLORIDE 0.9% 1,000 ML IV SCH (18:03)
[2019-03-27] MEDS: CEPHALEXIN 500 MG CAP PO SCH (18:51)
[2019-03-27] MEDS: CITALOPRAM HYDROBROMIDE 10 MG TAB PO SCH (18:51)
[2019-03-27] MEDS: DONEPEZIL 5 MG TAB PO SCH (18:51)
[2019-03-27] MEDS: ATORVASTATIN 40 MG TAB PO SCH (18:53)
[2019-03-27 20:32] LABS: Glucose,Whole Blood 150 mg/dL (75-99)
[2019-03-28] MEDS: IPRATROPIUM-ALBUTEROL 3 ML NEB INHALATION PRN (00:37)
[2019-03-28] MEDS: SODIUM CHLORIDE 0.9% 1,000 ML IV SCH ×2 (02:44→17:55)
[2019-03-28 07:22] LABS: Glucose,Whole Blood 107 mg/dL (75-99)
[2019-03-28] MEDS: INSULIN ASPART (NovoLOG) 100 UNIT/ML VIAL SQ SCH ×3 (07:57→17:55)
[2019-03-28] MEDS: METOPROLOL SUCCINATE (ER) 25 MG TAB.ER.24H PO SCH (08:34)
[2019-03-28] MEDS: CEPHALEXIN 500 MG CAP PO SCH ×2 (08:34→17:55)
[2019-03-28 09:10] LABS: HCT 32.4 % (34.0-46.0); HGB 10.4 gm/dL (11.4-16.0); MCH 31.6 pg (25.0-35.0); MCV 98.8 fL (80.0-100.0); RBC 3.28 m/uL (3.80-5.40); WBC 6.2 k/uL (3.8-10.6)
[2019-03-28 09:11] LABS: Basophils # (A) 0.1 k/uL (0-0.2); Basophils % (A) 1 %; Eosinophils # (A) 0.3 k/uL (0-0.7); Eosinophils % (A) 5 %; Hypochromasia Slight; Lymphocytes # (A) 1.5 k/uL (1.0-4.8); Lymphocytes % (A) 25 %; Mean Platelet Volume 8.7; Monocytes # (A) 0.4 k/uL (0-1.0); Monocytes % (A) 6 %; Neutrophils # (A) 3.7 k/uL (1.3-7.7); Neutrophils % (A) 60 %; Platelet Count 207 k/uL (150-450); RDW 13.1 % (11.5-15.5)
[2019-03-28 09:19] LABS: Calcium 8.3 mg/dL (8.4-10.2); Potassium 4.9 mmol/L (3.5-5.1)
--- NOTE | 2019-03-28 10:34 | P.PN ---
Subjective Progress Note Date: 03/28/19 The patient is an 88-year-old female with a PMH of Alzheimer's dementia, hypertension, hyperlipidemia, and type 2 diabetes mellitus who presented to the ED after a fall. The patient is a resident of an assisted living facility, where she had a fall 3 days prior after which she had presented to the emergency room at [facility] where she was found to have a right metatarsal fracture and had a brace put on. The patient was subsequently discharged back to the assisted living. As per the daughters at the bedside, last night one of them had been staying with the patient and had gone to the bathroom when she heard a sudden thud, and found the patient had fallen to the ground and had taken off her brace. She subsequently brought the patient into the emergency room earlier today. They reported noticing no injuries to the patient, and the patient herself denied any pain. At time of initial interview, the patient denied any active complaints. She denied chest pain, shortness of breath, na usea, vomiting, fever, chills, headache, visual disturbances, or abdominal pain. The patient underwent an extensive evaluation in the emergency room with a head/cervical spine CT which was unremarkable. Chest and pelvis x-rays were unremarkable. The foot x-ray redemonstrated fracture of the right metatarsal. EKG revealed normal sinus rhythm at [address]/T-wave changes noted. Laboratory evaluation revealed a WBC count of 8.5, hemoglobin 11.7, platelets 216, sodium 137, potassium 6.3, BUN 38, and creatinine 1.96. The patient was thereby admitted to the medicine service for acute renal failure, hyperkalemia, and placement needs. The case was discussed with the family in detail regarding possible placement. A social work and case management consult was placed. The patient was seen and examined at the bedside on 03/28. She denied active complaints with no events overnight. Denied chest pain, shortness of breath, nausea, vomiting, fever, chills, or cough. Objective - Vital Signs Vital signs: Vital Signs Temp 97.7 F 03/28/19 05:00 Pulse 74 03/28/19 05:00 Resp 16 03/28/19 05:00 BP 103/55 03/28/19 05:00 Pulse Ox 97 03/28/19 05:00 Intake & Output 03/27/19 03/28/19 03/28/19 18:59 06:59 18:59 Intake Total 1380 Balance 1380 Weight 53.431 kg Intake: Intake, IV Titration 960 Amount Sodium Chloride 0.9% 1, 960 000 ml @ 80 mls/hr IV . [id number] [facility] Rx#:[id number] Oral 420 Other: Voiding Method Bedside Commode Bedside Commode Bedside Commode Incontinent Incontinent Incontinent # Voids 4 - Exam General: Non-toxic, in no acute distress, appears stated age, normal weight HEENT: NC/AT, anicteric sclerae, moist conjunctiva, no lid-lag, PERRLA Cardiovascular: S1/S2 wnl, no murmurs, rubs, or gallops Lungs: Clear to auscultation, normal respiratory effort, no accessory muscle use Abdominal: Soft, non-tender, non-distended, no guarding, rebound, or rigidity Skin: Warm, dry Extremities: No edema or contractures Psychiatric: Awake, alert, oriented only to self Neuro: CN II-XII grossly intact, no focal neuro deficits noted - Labs CBC & Chem 7: 03/28/19 07:58 03/28/19 07:58 Labs: Abnormal Lab Results - Last 24 Hours (Table) 03/27/19 03/27/19 03/27/19 Range/Units 13:16 14:33 14:33 RBC (3.80-5.40) m/uL Hgb (11.4-16.0) gm/dL Hct (34.0-46.0) % Potassium 6.3 H* 5.7 H (3.5-5.1) mmol/L Chloride (98-107) mmol/L BUN 38 H 37 H (7-17) mg/dL Creatinine 1.96 H 2.03 H (0.52-1.04) mg/dL POC Glucose (mg/dL) (75-99) mg/dL Calcium (8.4-10.2) mg/dL Magnesium 2.6 H (1.6-2.3) mg/dL AST 39 H (14-36) U/L Total Protein 6.1 L (6.3-8.2) g/dL Albumin 3.3 L 3.3 L (3.5-5.0) g/dL Urine Protein 1+ H (Negative) Ur Leukocyte Esterase Trace H (Negative) Urine WBC 19 H (0-5) /hpf Urine WBC Clumps Few H (None) /hpf 03/27/19 03/28/19 03/28/19 Range/Units 20:30 07:03 07:58 RBC 3.28 L (3.80-5.40) m/uL Hgb 10.4 L (11.4-16.0) gm/dL Hct 32.4 L (34.0-46.0) % Potassium (3.5-5.1) mmol/L Chloride (98-107) mmol/L BUN (7-17) mg/dL Creatinine (0.52-1.04) mg/dL POC Glucose (mg/dL) 150 H 107 H (75-99) mg/dL Calcium (8.4-10.2) mg/dL Magnesium (1.6-2.3) mg/dL AST (14-36) U/L Total Protein (6.3-8.2) g/dL Albumin (3.5-5.0) g/dL Urine Protein (Negative) Ur Leukocyte Esterase (Negative) Urine WBC (0-5) /hpf Urine WBC Clumps (None) /hpf 03/28/19 Range/Units 07:58 RBC (3.80-5.40) m/uL Hgb (11.4-16.0) gm/dL Hct (34.0-46.0) % Potassium (3.5-5.1) mmol/L Chloride 108 H (98-107) mmol/L BUN 31 H (7-17) mg/dL Creatinine 1.79 H (0.52-1.04) mg/dL POC Glucose (mg/dL) (75-99) mg/dL Calcium 8.3 L (8.4-10.2) mg/dL Magnesium (1.6-2.3) mg/dL AST (14-36) U/L Total Protein (6.3-8.2) g/dL Albumin (3.5-5.0) g/dL Urine Protein (Negative) Ur Leukocyte Esterase (Negative) Urine WBC (0-5) /hpf Urine WBC Clumps (None) /hpf Microbiology - Last 24 Hours (Table) 03/27/19 14:33 Urine Culture - Preliminary Urine,Voided Assessment and Plan Plan: GABRIEL, likely prerenal due to decreased oral intake, improved -Continue with IV fluids and monitor BMP -CK levels wnl Fall, with traumatic right metatarsal fracture -Orthopedic surgery consult pending -Fall precautions -PT/OT consult Hyperkalemia, resolved Abnormal UA -Patient currently on Keflex from outpatient -C/w Keflex for now Mild protein calorie malnutrition -Ditch Cleaner consult Chronic conditions: Hypertension, hyperkalemia, type 2 diabetes mellitus, alzheimers dementia -Continue with home meds -SARATH with FS DVT prophylaxis -Heparin The patient is admitted with an anticipated less than 2 midnight stay for evaluation of GABRIEL CODE STATUS: No Code Anticipated discharge date: 1-[address]: [facility]
--- NOTE | 2019-03-28 11:00 | P.CNOR ---
History of Present Illness - HPI Consult date: 03/28/19 History of present illness: This patient is an 88-year-old female with a past medical history of type 2 diabetes, dementia, hypertension, and hyperlipidemia that presented to [facility] ED after a fall. She was last seen in the ER on 03/24/19 after a different fall, where she was found to have a right 5th metatarsal fracture, as well as a right distal fibula fracture. The patient was placed into a short leg splint and discharged home. Patient is unable to provide history at the time of my exam, although per chart review, the patient took her short leg splint off at home and her daughters heard a thud. She was subsequently brought to the ER by family for evaluation. She was admitted under the care of internal medicine due to acute kidney injury, hyperkalemia, and placement. A consult was placed to orthopedic surgery for her right ankle and foot. At the time of my exam, the patient complains of isolated right foot pain. No additional complaints. Vital signs stable. Past Medical History Past Medical History: Dementia, Diabetes Mellitus History of Any Multi-Drug Resistant Organisms: ESBL Year Discovered:: 03/24/19 ESBL Klebsiella MDRO Source:: Urine Past Surgical History: Hysterectomy Past Anesthesia/Blood Transfusion Reactions: No Reported Reaction Past Psychological History: No Psychological Hx Reported Smoking Status: Never smoker Past Alcohol Use History: Occasional Past Drug Use History: Unable to Obtain Medications and Allergies Home Medications Medication Instructions Recorded Confirmed Type Calcium/Magnesium/Zinc 1 tab PO BID@0800,1830 04/08/16 03/27/19 History [Yqnkmlk-Mckerjouw-Ckpy Tablet] Citalopram Hydrobromide [CeleXA] 10 mg PO HS@1830 04/08/16 03/27/19 History Pioglitazone [Actos] 15 mg PO DAILY@0800 04/08/16 03/27/19 History Ramipril [Altace] 10 mg PO DAILY@0800 04/08/16 03/27/19 History metFORMIN HCL [Glucophage] 500 mg PO DAILY@0800 04/08/16 03/27/19 History Donepezil [Aricept] 5 mg PO HS@1830 09/27/16 03/27/19 History guaiFENesin-DM 100-10MG/5ML 10 ml PO QID PRN 09/27/16 03/27/19 History [Robitussin DM] metFORMIN HCL [Glucophage] 1,000 mg PO HS@18309/27/16 03/27/19 History Atorvastatin [Lipitor] 40 mg PO HS@18303/27/19 03/27/19 History Cephalexin [Keflex] 500 mg PO BID@0800,1800 03/27/19 03/27/19 History Metoprolol Succinate [Toprol XL] 25 mg PO DAILY@0800 03/27/19 03/27/19 History Allergies Allergy/AdvReac Type Severity Reaction Status Date / Time Sulfa (Sulfonamide Allergy Rash/Hives Verified 03/27/19 16:26 Antibiotics) Physical Examination On examination, the patient is sitting in bed in no apparent distress. She is alert and orientated to person and place. Her head appears normocephalic and atraumatic. Her breathing appears nonlabored. On inspection of the right lower extremity, there is ecchymosis and mild swelling of the dorsal foot. There are no open wounds or lacerations. There is pain on palpation of the lateral foot, and lateral ankle. There is no pain with passive range of motion of the toes, or ankle. Patient has good active range of motion of the ankle. There is no pain on palpation of the lower leg, knee, and thigh. No pain with passive range of motion of the knee or hip. The right foot is warm and well perfused with brisk capillary refill. Motor and sensory function appear to be intact of the right lower extremity. Calf is soft and nontender to palpation. Results Right ankle x-ray 03/24/19: Minimally displaced distal fibula fracture. Stable ankle mortise. Right foot x-ray 03/27/19: Avulsion fracture fifth metatarsal base. - Labs Labs: Abnormal Lab Results - Last 24 Hours (Table) 03/27/19 03/27/19 03/27/19 Range/Units 13:16 14:33 14:33 RBC (3.80-5.40) m/uL Hgb (11.4-16.0) gm/dL Hct (34.0-46.0) % Potassium 6.3 H* 5.7 H (3.5-5.1) mmol/L Chloride (98-107) mmol/L BUN 38 H 37 H (7-17) mg/dL Creatinine 1.96 H 2.03 H (0.52-1.04) mg/dL POC Glucose (mg/dL) (75-99) mg/dL Calcium (8.4-10.2) mg/dL Magnesium 2.6 H (1.6-2.3) mg/dL AST 39 H (14-36) U/L Total Protein 6.1 L (6.3-8.2) g/dL Albumin 3.3 L 3.3 L (3.5-5.0) g/dL Urine Protein 1+ H (Negative) Ur Leukocyte Esterase Trace H (Negative) Urine WBC 19 H (0-5) /hpf Urine WBC Clumps Few H (None) /hpf 03/27/19 03/28/19 03/28/19 Range/Units 20:30 07:03 07:58 RBC 3.28 L (3.80-5.40) m/uL Hgb 10.4 L (11.4-16.0) gm/dL Hct 32.4 L (34.0-46.0) % Potassium (3.5-5.1) mmol/L Chloride (98-107) mmol/L BUN (7-17) mg/dL Creatinine (0.52-1.04) mg/dL POC Glucose (mg/dL) 150 H 107 H (75-99) mg/dL Calcium (8.4-10.2) mg/dL Magnesium (1.6-2.3) mg/dL AST (14-36) U/L Total Protein (6.3-8.2) g/dL Albumin (3.5-5.0) g/dL Urine Protein (Negative) Ur Leukocyte Esterase (Negative) Urine WBC (0-5) /hpf Urine WBC Clumps (None) /hpf 03/28/19 Range/Units 07:58 RBC (3.80-5.40) m/uL Hgb (11.4-16.0) gm/dL Hct (34.0-46.0) % Potassium (3.5-5.1) mmol/L Chloride 108 H (98-107) mmol/L BUN 31 H (7-17) mg/dL Creatinine 1.79 H (0.52-1.04) mg/dL POC Glucose (mg/dL) (75-99) mg/dL Calcium 8.3 L (8.4-10.2) mg/dL Magnesium (1.6-2.3) mg/dL AST (14-36) U/L Total Protein (6.3-8.2) g/dL Albumin (3.5-5.0) g/dL Urine Protein (Negative) Ur Leukocyte Esterase (Negative) Urine WBC (0-5) /hpf Urine WBC Clumps (None) /hpf Microbiology - Last 24 Hours (Table) 03/27/19 14:33 Urine Culture - Preliminary Urine,Voided H & H 03/27/19 03/28/19 Range/Units 13:16 07:58 Hgb 11.7 10.4 L (11.4-16.0) gm/dL Hct 37.0 32.4 L (34.0-46.0) % Result Diagrams: 03/28/19 07:58 03/28/19 07:58 Assessment and Plan Assessment: Avulsion fracture fifth metatarsal base, right foot. Minimally displaced distal fibula fracture, right ankle. Plan: - I discussed the clinical and imaging findings with the patient. There is no operative intervention planned at this time. Symptomatic treatment is recommended for the 5th metatarsal base fracture and the distal fibula fracture. - I recommended immobilization of the right foot and ankle with a post-operative shoe and a lace-up ankle brace. She may weight bear as tolerated the right lower extremity. Recommended a walker for ambulation until she is experiencing pain- free weight bearing. - Physical therapy for gait and balance training. - I advised icing and elevation of the right foot and ankle for edema and pain control. - The patient may follow-up in the office in 2 weeks following discharge for repeat x-rays of the right foot and ankle, and a clinical re-evaluation.
[2019-03-28 11:28] LABS: Glucose,Whole Blood 108 mg/dL (75-99)
[2019-03-28 13:02] VITALS: BMI 19.5
[2019-03-28 17:08] LABS: Glucose,Whole Blood 135 mg/dL (75-99)
[2019-03-28] MEDS: CITALOPRAM HYDROBROMIDE 10 MG TAB PO SCH (17:55)
[2019-03-28] MEDS: DONEPEZIL 5 MG TAB PO SCH (17:55)
[2019-03-28] MEDS: ATORVASTATIN 40 MG TAB PO SCH (17:55)
[2019-03-28 19:45] LABS: Glucose,Whole Blood 136 mg/dL (75-99)
[2019-03-29] MEDS: IPRATROPIUM-ALBUTEROL 3 ML NEB INHALATION PRN (03:28)
[2019-03-29] MEDS: SODIUM CHLORIDE 0.9% 1,000 ML IV SCH (05:13)
[2019-03-29 07:02] LABS: Glucose,Whole Blood 115 mg/dL (75-99)
[2019-03-29] MEDS: INSULIN ASPART (NovoLOG) 100 UNIT/ML VIAL SQ SCH ×3 (07:36→17:13)
[2019-03-29 08:07] LABS: Calcium 8.6 mg/dL (8.4-10.2); Potassium 4.6 mmol/L (3.5-5.1)
[2019-03-29] MEDS: CEPHALEXIN 500 MG CAP PO SCH ×2 (08:53→18:20)
[2019-03-29] MEDS: METOPROLOL SUCCINATE (ER) 25 MG TAB.ER.24H PO SCH (08:53)
--- NOTE | 2019-03-29 10:09 | P.DS ---
Providers Date of admission: 03/27/19 15:37 Expected date of discharge: 03/29/19 Attending physician: Carly Moore MD Consults: 03/27/19 17:35 Consult Physician Routine Consulting Provider: Xavier Mcduffie Consult Reason/Comments: fx of 5th metatarsal Do you want consulting provider notified?: Yes Primary care physician: Holden Hospital Course: The patient is an 88-year-old female with a PMH of Alzheimer's dementia, hypertension, hyperlipidemia, and type 2 diabetes mellitus who presented to the ED after a fall. The patient is a resident of an assisted living facility, where she had a fall 3 days prior after which she had presented to the emergency room at [facility] where she was found to have a right metatarsal fracture and had a brace put on. The patient was subsequently discharged back to the assisted living. As per the daughters at the bedside, last night one of them had been staying with the patient and had gone to the bathroom when she heard a sudden thud, and found the patient had fallen to the ground and had taken off her brace. She subsequently brought the patient into the emergency room earlier today. They reported noticing no injuries to the patient, and the patient herself denied any pain. At time of initial interview, the patient denied any active complaints. She denied chest pain, shortness of breath, nausea, vomiting, fever, chills, headache, visual disturbances, or abdominal pain. The patient underwent an extensive evaluation in the emergency room with a head/cervical spine CT which was unremarkable. Chest and pelvis x-rays were unremarkable. The foot x-ray redemonstrated fracture of the right metatarsal. EKG revealed normal sinus rhythm at [address]/T-wave changes noted. Laboratory evaluation revealed a WBC count of 8.5, hemoglobin 11.7, platelets 216, sodium 137, potassium 6.3, BUN 38, and creatinine 1.96. The patient was thereby admitted to the medicine service for acute renal failure, hyperkalemia, and placement needs. The case was discussed with the family in detail regarding possible placement. A social work and case management consult was placed. The patient was evaluated by physical therapy who recommended transfer to a subacute rehab and possible long-term placement thereafter. The patient was seen by Orthopedic surgery for her R metatarsal fracture who recommended a brace and subsequent outpatient f/u with no surgical intervention planned. The patient's GABRIEL gradually improved. She was seen and evaluated at the bedside on the day of discharge. She was in good spirits and denied active complaints. Case was discussed with son Kings at the bedside. The family is in agreement with her discharge to rehab facility. The patient denied chest pain, SOB, nausea, vomiting, fever, chills, or abd pain. Physical Examination General: Non-toxic, in no acute distress, appears stated age, normal weight HEENT: NC/AT, anicteric sclerae, moist conjunctiva, no lid-lag, PERRLA Cardiovascular: S1/S2 wnl, no murmurs, rubs, or gallops Lungs: Clear to auscultation, normal respiratory effort, no accessory muscle use Abdominal: Soft, non-tender, non-distended, no guarding, rebound, or rigidity Skin: Warm, dry Extremities: No edema or contractures Psychiatric: Alert, oriented only to self, aware she is in the hospital Neuro: CN II-XII grossly intact, Strength 5/5 in all 4 extremities, Speech intact, Sensation to light touch grossly intact throughout Discharge diagnosis: GABRIEL, resolved; fall with traumatic R metatarsal fracture; hyperkalemia, resolved; mild protein calorie malnutrition; hypertension; type 2 diabetes mellitus; Alzheimer's dementia; Abnormal UA A total of 40 minutes of time were spent preparing this complex discharge summary. Patient Condition at Discharge: Stable Plan - Discharge Summary Discharge Rx Participant: No New Discharge Prescriptions: Continue Citalopram Hydrobromide [CeleXA] 10 mg PO HS@1830 metFORMIN HCL [Glucophage] 500 mg PO DAILY@0800 Pioglitazone [Actos] 15 mg PO DAILY@0800 Calcium/Magnesium/Zinc [Xeaqmyo-Qtaydmsbd-Efhv Tablet] 1 tab PO BID@0800,1830 metFORMIN HCL [Glucophage] 1,000 mg PO HS@1830 Donepezil [Aricept] 5 mg PO HS@1830 guaiFENesin-DM 100-10MG/5ML [Robitussin DM] 10 ml PO QID PRN PRN Reason: Congestion Metoprolol Succinate [Toprol XL] 25 mg PO DAILY@0800 Atorvastatin [Lipitor] 40 mg PO HS@1830 Cephalexin [Keflex] 500 mg PO BID@0800,1800 Discontinued Ramipril [Altace] 10 mg PO DAILY@0800 Discharge Medication List Calcium/Magnesium/Zinc [Cltbhwk-Nhmtsahnz-Wnmv Tablet] 1 tab PO BID@0800,182904/08/16 [History] Citalopram Hydrobromide [CeleXA] 10 mg PO HS@182904/08/16 [History] Pioglitazone [Actos] 15 mg PO DAILY@0800 04/08/16 [History] metFORMIN HCL [Glucophage] 500 mg PO DAILY@0804/08/16 [History] Donepezil [Aricept] 5 mg PO HS@182909/27/16 [History] guaiFENesin-DM 100-10MG/5ML [Robitussin DM] 10 ml PO QID PRN 09/27/16 [History] metFORMIN HCL [Glucophage] 1,000 mg PO HS@182909/27/16 [History] Atorvastatin [Lipitor] 40 mg PO HS@182903/27/19 [History] Cephalexin [Keflex] 500 mg PO BID@0800,1800 03/27/19 [History] Metoprolol Succinate [Toprol XL] 25 mg PO DAILY@0803/27/19 [History] Follow up Appointment(s)/Referral(s): Darrius Cabrera MD [Primary Care Provider] - 1-2 days Xavier Mcduffie MD [Medical Doctor] - 2 Weeks Patient Instructions/Handouts: Fall Prevention (ED) Discharge Disposition: TRANSFER TO SNF/ECF
[2019-03-29 11:20] LABS: Glucose,Whole Blood 169 mg/dL (75-99)
[2019-03-29 16:58] LABS: Glucose,Whole Blood 101 mg/dL (75-99)
--- NOTE | 2019-03-29 17:34 | P.PN ---
Progress Note - Text Progress Note Date: 03/29/19 Patient unable to go to Rehab facility on 03/29 since pre-auth couldn't be obtained. Patient likely DC to [facility] tomorrow.
[2019-03-29] MEDS: DONEPEZIL 5 MG TAB PO SCH (18:20)
[2019-03-29] MEDS: ATORVASTATIN 40 MG TAB PO SCH (18:20)
[2019-03-29] MEDS: CITALOPRAM HYDROBROMIDE 10 MG TAB PO SCH (18:20)
[2019-03-29 20:07] LABS: Glucose,Whole Blood 210 mg/dL (75-99)
[2019-03-30 03:20] LABS: Glucose,Whole Blood 116 mg/dL (75-99)
[2019-03-30] MEDS: IPRATROPIUM-ALBUTEROL 3 ML NEB INHALATION PRN (05:13)
[2019-03-30 07:07] LABS: Glucose,Whole Blood 115 mg/dL (75-99)
[2019-03-30] MEDS: INSULIN ASPART (NovoLOG) 100 UNIT/ML VIAL SQ SCH ×2 (07:16→12:38)
[2019-03-30] MEDS: CEPHALEXIN 500 MG CAP PO SCH (09:18)
[2019-03-30] MEDS: METOPROLOL SUCCINATE (ER) 25 MG TAB.ER.24H PO SCH (09:18)
--- NOTE | 2019-03-30 11:10 | P.PN ---
Subjective Progress Note Date: 03/30/19 Principal diagnosis: Placement Patient was seen and examined. No acute events overnight. Family at bedside. She reports right ankle pain well-controlled with current medications. She denies any chest pain, shortness of breath or palpitations. Urinating freely. Having bowel movements. Tolerating diet well. She has no complaints. Objective - Vital Signs Vital signs: Vital Signs Temp 98.2 F 03/30/19 05:00 Pulse 71 03/30/19 05:22 Resp 16 03/30/19 05:00 BP 138/83 03/30/19 05:00 Pulse Ox 92 L 03/30/19 05:00 Intake & Output 03/29/19 03/30/19 03/30/19 18:59 06:59 18:59 Intake Total 240 1350 Balance 240 1350 Intake: Intake, IV Titration 640 Amount Sodium Chloride 0.9% 1, 640 000 ml @ 80 mls/hr IV . [id number] [facility] Rx#:[id number] Oral 240 710 Other: Voiding Method Bedside Commode Bedside Commode Diaper Diaper Incontinent Incontinent # Voids 1 4 # Bowel Movements 1 - Exam General: [non toxic], [no distress], [appears at stated age] Derm: [warm], [dry] Head: [atraumatic], [normocephalic], [symmetric] Eyes: [EOMI], [no lid lag], [anicteric sclera] Mouth: [no lip lesion], [mucus membranes moist] Cardiovascular: [S1S2 reg], [no murmur], [positive DP pulse bilateral], Lungs: [CTA bilateral], [no rhonchi, no rales] , [no accessory muscle use] Abdominal: [soft], [ nontender to palpation], [no guarding], [no appreciable organomegaly] Ext: [no gross muscle atrophy], [no edema], [no contractures], [right ankle braced] Neuro: [no focal neuro deficits] Psych: [Alert], [oriented], [appropriate affect] - Labs CBC & Chem 7: 03/28/19 07:58 03/29/19 07:35 Labs: Abnormal Lab Results - Last 24 Hours (Table) 03/29/19 03/29/19 03/29/19 Range/Units 11:18 16:56 20:07 POC Glucose (mg/dL) 169 H 101 H 210 H (75-99) mg/dL 03/30/19 03/30/19 Range/Units 03:19 07:06 POC Glucose (mg/dL) 116 H 115 H (75-99) mg/dL Assessment and Plan Assessment: Acute kidney injury Fall with traumatic right metatarsal fracture Abnormal UA Mild protein calorie malnutrition Chronic conditions: Hypertension, type 2 diabetes mellitus, Alzheimer's dementia Creatinine improving from 2.03-1.26. Likely prerenal from dehydration. Plans: Avoid nephrotoxins. Encourage hydration by mouth. Evaluated by orthopedic surgery. Recommends bracing. Plans: Hopeful DC to [facility]. Follow-up orthopedic surgery in 2 weeks. UA showing trace leukocyte esterase. Plans: Patient has received Keflex for 3 days for simple UTI. BMI 19.6. Albumin 3.3. Plans: Follow dietitian consult. Add Ensure. Blood pressure this morning 138/83. Iyish-np-eeze glucose 115. We will continue antihypertensive medication along with insulin sliding scale. She is on Aricept for Alzheimer's. [Pending approval by insurance for DC to [facility].]
[2019-03-30 11:31] LABS: Glucose,Whole Blood 305 mg/dL (75-99)
[2019-03-30 11:44] VITALS: BP 123/58; PULSE 82; RESP 17; TEMP 97.1
== END 2019-03-30 13:00 ==
LOC: EC 10:40 → 5NMEDONC 15:37
PROVIDERS: ADMIT Internal Medicine; ATTEND Internal Medicine
DX: N17.9 Acute kidney failure, unspecified (principal); S92.351A Displaced fracture of fifth metatarsal bone, right foot, initial encounter for closed fracture; S82.831A Other fracture of upper and lower end of right fibula, initial encounter for closed fracture; E87.5 Hyperkalemia; E46 Unspecified protein-calorie malnutrition; I11.9 Hypertensive heart disease without heart failure; E11.9 Type 2 diabetes mellitus without complications; G30.9 Alzheimer's disease, unspecified; F02.80 Dementia in other diseases classified elsewhere, unspecified severity, without behavioral disturbance, psychotic disturbance, mood disturbance, and anxiety; N39.0 Urinary tract infection, site not specified; R41.0 Disorientation, unspecified; E78.5 Hyperlipidemia, unspecified; I67.82 Cerebral ischemia; M89.8X6 Other specified disorders of bone, lower leg; Z68.1 Body mass index [BMI] 19.9 or less, adult; Z79.899 Other long term (current) drug therapy; Z79.84 Long term (current) use of oral hypoglycemic drugs; Z88.2 Allergy status to sulfonamides; Z90.710 Acquired absence of both cervix and uterus; Z66 Do not resuscitate; Z86.19 Personal history of other infectious and parasitic diseases; W19.XXXA Unspecified fall, initial encounter
CPT/HCPCS: 96361 ×3; 96360; 99285; 36415; 94640 ×3; 93005; 97116 ×2; 97162; 97535; 97166; 80053; 80048 ×2; 82550; 83735; 85025 ×2; 81001; 87086; 72170; 73630; 71046; 72125; 70450; G0378 ×4

== ENCOUNTER 2019-08-20 23:18 | Emergency (ER) | payer MEDICARE ==
[2019-08-21] MEDS ORDERED: ALBUTEROL NEBULIZED 2.5 MG/3 ML INHALATION STA (00:04)
[2019-08-21 00:46] VITALS: RESP 16
[2019-08-21 00:54] LABS: Basophils % (A) 0 %; Eosinophils # (A) 0.4 k/uL (0-0.7); Eosinophils % (A) 4 %; HCT 41.8 % (34.0-46.0); HGB 13.7 gm/dL (11.4-16.0); Hypochromasia Slight; Lymphocytes % (A) 20 %; MCH 31.5 pg (25.0-35.0); MCHC 32.8 g/dL (31.0-37.0); Mean Platelet Volume 8.1; Monocytes # (A) 0.5 k/uL (0-1.0); Monocytes % (A) 5 %; Neutrophils # (A) 6.5 k/uL (1.3-7.7); Neutrophils % (A) 68 %; Platelet Count 230 k/uL (150-450); RBC 4.35 m/uL (3.80-5.40); RDW 13.5 % (11.5-15.5); WBC 9.6 k/uL (3.8-10.6)
[2019-08-21 01:21] LABS: Calcium 9.8 mg/dL (8.4-10.2); Potassium 4.4 mmol/L (3.5-5.1)
--- NOTE | 2019-08-21 01:35 | CT ---
EXAMINATION TYPE: CT brain wo con DATE OF EXAM: 08/21/2019 COMPARISON: 03/27/2019 HISTORY: fall CT DLP: 1131.4 mGycm Automated exposure control for dose reduction was used. There is diffuse cerebral cortical atrophy. There is no mass effect nor midline shift. There is no si gn of intracranial hemorrhage. There is large mucus retention cyst in the left maxillary sinus. The c alvarium is intact. There is some patchy hypodensity in the periventricular white matter. IMPRESSION: Cerebral atrophy and chronic small vessel ischemia. No acute intracranial abnormality. No change comp ared to old exam.
--- NOTE | 2019-08-21 01:35 | XR ---
EXAMINATION TYPE: XR chest 2V DATE OF EXAM: 08/21/2019 COMPARISON: 03/27/2019 HISTORY: Weakness cough TECHNIQUE: FINDINGS: There is no heart failure nor confluent pneumonic infiltrate. Costophrenic angles are clear . Heart size is normal. There are no hilar masses. Bony thorax appears intact. IMPRESSION: No active cardiopulmonary disease. No change.
--- NOTE | 2019-08-21 02:46 | ED ---
General Adult HPI - General Chief complaint: Fall Stated complaint: Fall Time Seen by Provider: 08/20/19 23:25 Source: patient, EMS Mode of arrival: EMS Limitations: altered mental status - History of Present Illness Initial comments: This patient is an 88-year-old woman resident of [facility] who is sent to have evaluation after she had been found next to the bed on the ground. They had checked her approximately half-hour previously. The patient states that she had tried to get out of bed and fallen. She denies any injury. The review of systems is unremarkable other than the patient states she has been coughing for the past couple of days. Patient denies chest pain or dyspnea. -: hour(s) Location: head Severity scale (1-10): 0 Improves with: none Worsens with: none Associated Symptoms: cough Treatments Prior to Arrival: none - Related Data Home Medications Medication Instructions Recorded Confirmed Calcium/Magnesium/Zinc 1 tab PO BID@0800,1830 04/08/16 03/27/19 [Rhrqkdl-Ilijgybrg-Wcjj Tablet] Citalopram Hydrobromide [CeleXA] 10 mg PO HS@182904/08/16 03/27/19 Pioglitazone [Actos] 15 mg PO DAILY@0800 04/08/16 03/27/19 metFORMIN HCL [Glucophage] 500 mg PO DAILY@79904/08/16 03/27/19 Donepezil [Aricept] 5 mg PO HS@182909/27/16 03/27/19 guaiFENesin-DM 100-10MG/5ML 10 ml PO QID PRN 09/27/16 03/27/19 [Robitussin DM] metFORMIN HCL [Glucophage] 1,000 mg PO HS@182909/27/16 03/27/19 Atorvastatin [Lipitor] 40 mg PO HS@182903/27/19 03/27/19 Cephalexin [Keflex] 500 mg PO BID@0800,1800 03/27/19 03/27/19 Metoprolol Succinate [Toprol XL] 25 mg PO DAILY@0800 03/27/19 03/27/19 Previous Rx's Medication Instructions Recorded Azithromycin [Zithromax Z-pack] 250 mg PO DIRECTED #6 tab 08/21/19 Allergies Allergy/AdvReac Type Severity Reaction Status Date / Time Sulfa (Sulfonamide Allergy Rash/Hives Verified 08/20/19 23:28 Antibiotics) Review of Systems ROS Statement: Those systems with pertinent positive or pertinent negative responses have been documented in the HPI. ROS Other: All systems not noted in ROS Statement are negative. Constitutional: Denies: fever Respiratory: Reports: cough. Denies: dyspnea Cardiovascular: Denies: chest pain, syncope Gastrointestinal: Denies: abdominal pain, vomiting Musculoskeletal: Denies: back pain Neurological: Denies: headache, weakness Past Medical History Past Medical History: Dementia, Diabetes Mellitus History of Any Multi-Drug Resistant Organisms: ESBL Date of last positivie culture/infection: 03/24/19 Klebsiella MDRO Source:: Urine Past Surgical History: Hysterectomy Past Anesthesia/Blood Transfusion Reactions: No Reported Reaction Past Psychological History: No Psychological Hx Reported Smoking Status: Never smoker Past Alcohol Use History: Occasional Past Drug Use History: Unable to Obtain General Exam Limitations: altered mental status General appearance: alert, in no apparent distress Head exam: Present: atraumatic, normocephalic, normal inspection Eye exam: Present: normal appearance, EOMI. Absent: scleral icterus, conjunctival injection ENT exam: Present: normal oropharynx Neck exam: Present: normal inspection, full ROM. Absent: tenderness Respiratory exam: Present: normal lung sounds bilaterally. Absent: respiratory distress, wheezes, rales, rhonchi, stridor Cardiovascular Exam: Present: regular rate, normal rhythm, normal heart sounds. Absent: systolic murmur, diastolic murmur, rubs, gallop GI/Abdominal exam: Present: soft. Absent: distended, tenderness, guarding, rebound Extremities exam: Present: normal inspection, normal capillary refill. Absent: pedal edema, calf tenderness Back exam: Present: normal inspection. Absent: CVA tenderness (R), CVA tenderness (L), vertebral tenderness Neurological exam: Present: alert, CN II-XII intact. Absent: oriented X3 Skin exam: Present: warm, dry, intact, normal color. Absent: rash Course Vital Signs 08/20/19 08/20/19 08/21/19 23:22 23:29 00:00 Temperature 98.4 F Pulse Rate 82 85 Respiratory 18 18 16 Rate Blood Pressure 165/86 145/73 O2 Sat by Pulse 93 L 93 L Oximetry 08/21/19 08/21/19 08/21/19 00:44 00:53 01:00 Temperature Pulse Rate 81 82 83 Respiratory 16 Rate Blood Pressure O2 Sat by Pulse 95 Oximetry 08/21/19 08/21/19 02:00 03:00 Temperature 97.9 F Pulse Rate 86 Respiratory 16 16 Rate Blood Pressure 115/83 130/81 O2 Sat by Pulse 95 Oximetry Medical Decision Making - Medical Decision Making Patient is an 88-year-old woman brought for evaluation after she had had a fall from bed. The exam is benign. CT head reveals no intracranial injury. Chest x-ray is unremarkable and given the patient has from long-term care facility: Swab was sent and is pending. Patient feeling at baseline stable for discharge back to home. - Lab Data Result diagrams: 08/21/19 00:29 08/21/19 00:29 Lab Results 08/21/19 08/21/19 08/21/19 Range/Units 00:29 00:29 00:29 WBC 9.6 (3.8-10.6) k/uL RBC 4.35 (3.80-5.40) m/uL Hgb 13.7 (11.4-16.0) gm/dL Hct 41.8 (34.0-46.0) % MCV 96.0 (80.0-100.0) fL MCH 31.5 (25.0-35.0) pg MCHC 32.8 (31.0-37.0) g/dL RDW 13.5 (11.5-15.5) % Plt Count 230 (150-450) k/uL Neutrophils % 68 % Lymphocytes % 20 % Monocytes % 5 % Eosinophils % 4 % Basophils % 0 % Neutrophils # 6.5 (1.3-7.7) k/uL Lymphocytes # 2.0 (1.0-4.8) k/uL Monocytes # 0.5 (0-1.0) k/uL Eosinophils # 0.4 (0-0.7) k/uL Basophils # 0.0 (0-0.2) k/uL Hypochromasia Slight Sodium 141 (137-145) mmol/L Potassium 4.4 (3.5-5.1) mmol/L Chloride 104 (98-107) mmol/L Carbon Dioxide 30 (22-30) mmol/L Anion Gap 7 mmol/L BUN 21 H (7-17) mg/dL Creatinine 0.90 (0.52-1.04) mg/dL Est GFR (CKD-EPI)AfAm 67 (>60 ml/min/1.73 sqM) Est GFR (CKD-EPI)NonAf 58 (>60 ml/min/1.73 sqM) Glucose 128 H (74-99) mg/dL Calcium 9.8 (8.4-10.2) mg/dL NT-Pro-B Natriuret Pep 473 pg/mL Coronavirus (PCR) (Not Detected) 08/21/19 Range/Units 00:29 WBC (3.8-10.6) k/uL RBC (3.80-5.40) m/uL Hgb (11.4-16.0) gm/dL Hct (34.0-46.0) % MCV (80.0-100.0) fL MCH (25.0-35.0) pg MCHC (31.0-37.0) g/dL RDW (11.5-15.5) % Plt Count (150-450) k/uL Neutrophils % % Lymphocytes % % Monocytes % % Eosinophils % % Basophils % % Neutrophils # (1.3-7.7) k/uL Lymphocytes # (1.0-4.8) k/uL Monocytes # (0-1.0) k/uL Eosinophils # (0-0.7) k/uL Basophils # (0-0.2) k/uL Hypochromasia Sodium (137-145) mmol/L Potassium (3.5-5.1) mmol/L Chloride (98-107) mmol/L Carbon Dioxide (22-30) mmol/L Anion Gap mmol/L BUN (7-17) mg/dL Creatinine (0.52-1.04) mg/dL Est GFR (CKD-EPI)AfAm (>60 ml/min/1.73 sqM) Est GFR (CKD-EPI)NonAf (>60 ml/min/1.73 sqM) Glucose (74-99) mg/dL Calcium (8.4-10.2) mg/dL NT-Pro-B Natriuret Pep pg/mL Coronavirus (PCR) Not Detected (Not Detected) Disposition Clinical Impression: Fall, Bronchitis Disposition: HOME SELF-CARE Condition: Fair Instructions (If sedation given, give patient instructions): Fall Prevention for Older Adults (ED), Acute Bronchitis (ED) Prescriptions: Azithromycin [Zithromax Z-pack] 250 mg PO DIRECTED #6 tab Is patient prescribed a controlled substance at d/c from ED?: No Referrals: Darrius Cabrera MD [Primary Care Provider] - 1-2 days
[2019-08-21 03:06] VITALS: BP 130/81; PULSE 86; TEMP 97.9
== END 2019-08-21 04:00 | disposition home or self-care (01) ==
LOC: EC 23:18
DX: J40 Bronchitis, not specified as acute or chronic (principal); R41.82 Altered mental status, unspecified; E11.9 Type 2 diabetes mellitus without complications; F03.90 Unspecified dementia, unspecified severity, without behavioral disturbance, psychotic disturbance, mood disturbance, and anxiety; Z79.84 Long term (current) use of oral hypoglycemic drugs; Z79.899 Other long term (current) drug therapy; Z88.2 Allergy status to sulfonamides; Z20.828 Contact with and (suspected) exposure to other viral communicable diseases; W06.XXXA Fall from bed, initial encounter; Y93.89 Activity, other specified; Y92.003 Bedroom of unspecified non-institutional (private) residence as the place of occurrence of the external cause
CPT/HCPCS: 99284; 36415; 94640; 83880; 80048; 85025; 71046; 70450; U0003

== ENCOUNTER 2019-10-11 21:15 | Emergency (ER) | payer MEDICARE ==
[2019-10-11 21:23] VITALS: RESP 18
--- NOTE | 2019-10-11 22:07 | XR ---
EXAMINATION TYPE: XR chest 2V DATE OF EXAM: 10/11/2019 COMPARISON: 08/21/2019 HISTORY: Fall. Pain. TECHNIQUE: FINDINGS: There is no heart failure. There is some pleural reaction at the lateral left lung base. Th ere is no pneumothorax. Thoracic aorta is atheromatous. There is coarsening of interstitial markings. I see no compression fracture of the thoracic spine. IMPRESSION: Mild pleural reaction lateral left lung base is increased compared to old exam. No heart failure. Mild pulmonary fibrosis.
--- NOTE | 2019-10-11 22:08 | XR ---
EXAMINATION TYPE: XR shoulder complete RT DATE OF EXAM: 10/11/2019 COMPARISON: NONE HISTORY: Fall. Pain. TECHNIQUE: 3 views FINDINGS: There is impacted transverse fracture through the humeral neck. There is no dislocation. Sc apula is intact. AC joint is intact. IMPRESSION: Impacted nondisplaced humeral neck fracture.
[2019-10-11 22:28] VITALS: BP 120/63; PULSE 86; TEMP 98
[2019-10-11] MEDS ORDERED: MORPHINE SULFATE 4 MG/ML SYRINGE IV STA (22:47)
[2019-10-11] MEDS ORDERED: ACET/COD 300 MG/30 MG STARTER PACK 6 TAB BTL PO STA (23:56)
--- NOTE | 2019-10-11 23:56 | ED ---
General Adult HPI - General Chief complaint: Fall Stated complaint: fall,shoulder pain Time Seen by Provider: 10/11/19 21:18 Source: EMS, RN notes reviewed, old records reviewed Mode of arrival: EMS Limitations: no limitations - History of Present Illness Initial comments: 88-year-old female patient past history of dementia previously chief complaint of fall. Patient had a fal injuring her right shoulder. She denied hitting her head or her neck. Complains of right shoulder pain. Denies a blood denies any other complaints. Systemic: Pt denies fatigue, fever/chills, rash. Pt denies weakness, night sweats, weight loss. Neuro: Pt denies headache, visual disturbances, syncope or pre-syncope. HEENT: Pt denies ocular discharge or irritation, otalgia, rhinorrhea, pharyngitis or notable lymphadenopathy. Cardiopulmonary: Pt denies chest pain, SOB, heart palpitations, dyspnea on exertion. Abdominal/GI: Pt denies abdominal pain, n/v/d. : Pt denies dysuria, burning w/ urination, frequency/urgency. Denies new onset urinary or bowel incontinence. MSK: Pt denies myalgia, loss of strength or function in extremities. Neuro: Pt denies new onset weakness, paresthesias. - Related Data Home Medications Medication Instructions Recorded Confirmed guaiFENesin-DM 100-10MG/5ML 10 ml PO QID PRN 09/27/16 10/11/19 [Robitussin DM] metFORMIN HCL [Glucophage] 1,000 mg PO HS@199909/27/16 10/11/19 Metoprolol Succinate [Toprol XL] 25 mg PO DAILY@89903/27/19 10/11/19 Acetaminophen [Tylenol 8 Hour] 650 mg PO Q4H PRN 10/11/19 10/11/19 Albuterol Sulfate [Proair 2 puff PO Q4H PRN 10/11/19 10/11/19 Respiclick] Cholecalciferol [Vitamin D3 (25 1,000 unit PO DAILY@89910/11/19 10/11/19 Mcg = 1000 Iu)] Cyanocobalamin (Vitamin B-12) 1,000 mcg PO DAILY@199910/11/19 10/11/19 [Vitamin B-12] Doxycycline Hyclate 100 mg PO BID 10/11/19 10/11/19 Hm Complete 1 tab PO BID@0900,199910/11/19 10/11/19 Ipratropium-Albuterol Nebulize 3 ml INHALATION RT-QID 10/11/19 10/11/19 [Duoneb 0.5 mg-3 mg/3 ml Soln] Kaolin/Pectin [Kaolin Pectin 30 ml PO DAILY PRN 10/11/19 10/11/19 Suspension] Magnesium Hydroxide [Milk of 2,400 mg PO HS PRN 10/11/19 10/11/19 Magnesia] Memantine [Namenda] 5 mg PO BID@0900,199910/11/19 10/11/19 Mirtazapine 15 mg PO HS 10/11/19 10/11/19 Sertraline [Zoloft] 100 mg PO DAILY@199910/11/19 10/11/19 guaiFENesin SYRUP 100MG/5ML 200 mg PO QID PRN 10/11/19 10/11/19 [Robitussin] Allergies Allergy/AdvReac Type Severity Reaction Status Date / Time Sulfa (Sulfonamide Allergy Rash/Hives Verified 10/11/19 21:51 Antibiotics) Review of Systems ROS Statement: Those systems with pertinent positive or pertinent negative responses have been documented in the HPI. ROS Other: All systems not noted in ROS Statement are negative. Past Medical History Past Medical History: Dementia, Diabetes Mellitus, Hypertension Additional Past Medical History / Comment(s): UTI History of Any Multi-Drug Resistant Organisms: ESBL Date of last positivie culture/infection: 03/24/19 Klebsiella MDRO Source:: Urine Past Surgical History: Hysterectomy Past Anesthesia/Blood Transfusion Reactions: No Reported Reaction Past Psychological History: No Psychological Hx Reported Smoking Status: Former smoker Past Alcohol Use History: Occasional Past Drug Use History: Unable to Obtain General Exam - General Exam Comments Initial Comments: Constitutional: NAD, Pt has pleasant affect. HEENT: NC/AT, trachea midline, neck supple, no lymphadenopathy. External ears appear normal, without discharge. Mucous membranes moist. Eyes PERRLA, EOM intact. There is no scleral icterus. No pallor noted. Cardiopulmonary: RRR, no murmurs, rubs or gallops, no JVD noted. Lungs CTAB in anterior and posterior arguelles. No peripheral edema. Abdominal exam: Abdomen soft and non-distended. Abdomen non-tender to palpation in all 4 quadrants. Bowel sounds active in LLQ. No hepatosplenomegaly. No ecchymosis Neuro: CN II-XII intact. No nuchal rigidity. No raccon eyes, no garcia sign, no hemotympanum. No cervical spinal tenderness. MSK: Right shoulder mildly tender to palpation. No other areas of tenderness upper or lower extremities. Neurovascularly intact. NPosterior tibialis and radial pulse +2 bilaterally. Sensation intact in upper and lower extremities. Full active ROM in left upper and and bilateral lower extremities, limited range of motion right upper extremity due to pain. Limitations: no limitations Course Vital Signs 10/11/19 10/11/19 21:16 22:27 Temperature 98.6 F 98 F Pulse Rate 95 86 Respiratory 18 18 Rate Blood Pressure 158/94 120/63 O2 Sat by Pulse 92 L 96 Oximetry Medical Decision Making - Medical Decision Making 88-year-old female patient past history of dementia previously chief complaint of fall. Patient had a fal injuring her right shoulder. She denied hitting her head or her neck. Complains of right shoulder pain. Denies a blood denies any other complaints. Patient vital signs are stable, afebrile. Physical exam is fully mild right shoulder tenderness to palpation. Chest x-rays mild pleuritic reaction left lateral lung base increased compared to old exam. Plain film right shoulder displayed impactedfemoral neck fracture. Patient placed in a shoulder sling. Patient is neurovascularly intact. Will be discharged with outpatient orthopedic follow-up and return to ER if condition worsens. Case discussed with Dr. Galvin. Disposition Clinical Impression: Humerus fracture Disposition: HOME SELF-CARE Condition: Stable Instructions (If sedation given, give patient instructions): Proximal Humerus Fracture (ED) Additional Instructions: follow-up with primary care provider and orthopedic consult tomorrow. Continue to wear sling. Return here if any worsening symptoms. Is patient prescribed a controlled substance at d/c from ED?: No Referrals: Darrius Cabrera MD [Primary Care Provider] - 1-2 days Ros Starr PAC [PHYSICIAN LOOM TUNER] - 1-2 days
== END 2019-10-12 00:54 | disposition home or self-care (01) ==
LOC: EC 21:15
DX: S42.214A Unspecified nondisplaced fracture of surgical neck of right humerus, initial encounter for closed fracture (principal); F03.90 Unspecified dementia, unspecified severity, without behavioral disturbance, psychotic disturbance, mood disturbance, and anxiety; E11.9 Type 2 diabetes mellitus without complications; I10 Essential (primary) hypertension; Z79.51 Long term (current) use of inhaled steroids; Z79.899 Other long term (current) drug therapy; Z88.2 Allergy status to sulfonamides; Z87.891 Personal history of nicotine dependence; W19.XXXA Unspecified fall, initial encounter
CPT/HCPCS: 73030; 71046; 99284; 96374; U0003; J2270